=== PATIENT | female | born 1930 | race Caucasian/White ===

== ENCOUNTER 2017-07-09 12:29 | Inpatient (IN) | payer OTHER ==
--- NOTE | 2017-07-09 12:48 | CPEKG ---
Heart Rate: 72 RR Interval: 833 P-R Interval: 184 QRSD Interval: 100 QT Interval: 428 QTC Interval: 469 P [place]: 44 QRS [place]: 58 T Wave [place]: 52 EKG Severity - NORMAL ECG - EKG Impression: SINUS RHYTHM Electronically Signed By: Brian Meza 09-Jul-2017 14:50:17
--- NOTE | 2017-07-09 12:49 | EDPHY ---
HPI/HX/ROS/PE/MDM Narrative: CHIEF COMPLAINT: Chest pain HPI: The patient is an 87 y/o female arriving at the referral of her PCP for intermittent exertional chest pain over the last month. Her medical history including hypertension, hyperlipidemia, and remote history of polio. The patient describes an intermittent indigestion sensation for the past month. She was at her PCP's today for a routine visit. An EKG there showed T wave inversion and she was referred here for evaluation. Patient is a poor historian , limiting history. REVIEW OF SYSTEMS: Aside from elements discussed in the HPI, a comprehensive 10-point review of systems was reviewed and is negative. PMH: 1. Hyperlipidemia 2. Hypertension 3. Benign essential tremor 4. Albino's thyroiditis 5. Kidney mass 6. Post poliomyelitis syndrome 7. Pulmonary nodule followed to completion. 8. Abnormal gait from remote polio SOCIAL HISTORY: Lives alone. PCP: Dr. Saunders. Urologist: Dr. Serrato Prior medical records reviewed including PMH list from PCP visit today. PHYSICAL EXAM: General:Patient is alert, in no acute distress. ENT:Eyes are normal to inspection. ENT inspection normal. Neck: Normal inspection. Full range of motion. Respiratory:No respiratory distress. Breath sounds normal bilaterally. Cardiovascular: Regular rate and rhythm. Strong peripheral pulses. Normal cap refill. Abdomen:The abdomen is nontender to palpation. There are no peritoneal signs. Back: Normal to inspection. No tenderness to palpation. Skin: Normal color. No rash. Warm and dry. Extremities: Normal appearance. Full range of motion. Neuro: Oriented x3. Normal motor function. Normal sensory function. Resting tremor. ED Course: This is an 87 y/p female who presents with a 1-month history of intermittent chest pain that she describes as indigestion during exertion with EKG changes seen at her PCP's office today. She has a resting tremor, but otherwise unremarkable exam. Plan for cardiac work up including IV, labs, EKG, chest x-ray , and 324mg PO aspirin. The 12 lead EKG was interpreted by myself. Sinus mechanism. T wave inversion anterior leads new since EKG 2014. See hard copy and/or "tracemaster" electronic copy for interpretation. Chest x-ray: nothing acute. Labs including troponin are unremarkable. 1358: Reassessed patient and discussed work up thus far. She says she feels fine and says, "I'm ready to pull the things out and go home." I recommended admission for provocative cardiac testing due to exertional chest pain with EKG changes, which she agrees to. Spoke with hospitalist service. Dr. Gilbert accepts admission. - Data Points Imaging Results: Imaging Impressions Chest X-Ray 07/09/17 12:42 Impression: 1. No active cardiopulmonary disease seen. 2. Hyperexpanded lungs suggestive of underlying mild COPD. Imaging: I viewed and interpreted images myself Laboratory Results: Laboratory Results 07/09/17 12:47 07/09/17 12:47 07/09/17 07/09/17 07/09/17 12:47 12:47 12:47 WBC 9.50 10^3/uL 10^3/uL (3.80-9.50) RBC 5.23 10^6/uL 10^6/uL (4.18-5.33) Hgb 15.8 g/dL g/dL (12.6-16.3) Hct 45.0 % % (38.0-47.0) MCV 86.0 fL fL (81.5-99.8) MCH 30.2 pg pg (27.9-34.1) MCHC 35.1 g/dL g/dL (32.4-36.7) RDW 13.3 % % (11.5-15.2) Plt Count 272 10^3/uL 10^3/uL (150-400) MPV 9.2 fL fL (8.7-11.7) Neut % (Auto) 61.9 % % (39.3-74.2) Lymph % (Auto) 24.6 % % (15.0-45.0) [place] % (Auto) 9.6 % % (4.5-13.0) Eos % (Auto) 3.3 % % (0.6-7.6) Baso % (Auto) 0.3 % % (0.3-1.7) Nucleat RBC Rel Count 0.0 % % (0.0-0.2) Absolute Neuts (auto) 5.88 10^3/uL 10^3/uL (1.70-6.50) Absolute Lymphs (auto) 2.34 10^3/uL 10^3/uL (1.00-3.00) Absolute Monos (auto) 0.91 10^3/uL H 10^3/uL (0.30-0.80) Absolute Eos (auto) 0.31 10^3/uL 10^3/uL (0.03-0.40) Absolute Basos (auto) 0.03 10^3/uL 10^3/uL (0.02-0.10) Absolute Nucleated RBC 0.00 10^3/uL 10^3/uL (0-0.01) Immature Gran % 0.3 % % (0.0-1.1) Immature Gran # 0.03 10^3/uL 10^3/uL (0.00-0.10) PT 12.3 SEC SEC (12.0-15.0) INR 0.89 (0.83-1.16) APTT 28.5 SEC SEC (23.0-38.0) Sodium 141 mEq/L mEq/L (135-145) Potassium 4.7 mEq/L mEq/L (3.5-5.2) Chloride 107 mEq/L mEq/L (97-110) Carbon Dioxide 20 mEq/l L mEq/l (22-31) Anion Gap 14 mEq/L mEq/L (8-16) BUN 26 mg/dL H mg/dL (7-23) Creatinine 0.9 mg/dL mg/dL (0.6-1.0) Estimated GFR 59 Glucose 96 mg/dL mg/dL (70-100) Calcium 9.7 mg/dL mg/dL (8.5-10.4) Troponin I < 0.012 ng/mL ng/mL (0.000-0.034) Medications Given: Discontinued Medications Aspirin (Aspirin) 324 mg PO EDNOW ONE Stop: 07/09/17 12:53 Last Admin: 07/09/17 12:59 Dose: 324 mg General Time Seen by Provider: 07/09/17 12:39 Initial Vital Signs: Initial Vital Signs Temperature (C) 36.6 C 07/09/17 12:38 Heart Rate 76 07/09/17 12:38 Respiratory Rate 16 07/09/17 12:38 Blood Pressure 172/110 H 07/09/17 12:38 O2 Sat (%) 96 07/09/17 12:38 Allergies/Adverse Reactions: No Known Allergies Allergy (Verified 07/09/17 12:43) Home Medications: Medication Instructions Recorded Aspirin [Aspirin 81mg (*)] 81 mg PO Q2D@08/04/13 Lisinopril [Zestril 40 mg (*)] 40 mg PO DAILY@18 08/04/13 Cholecalciferol Vit D3 [Vitamin D3 50,000 unit PO TH@21 09/19/14 (*)] Metoprolol Succinate [Toprol Xl 200 mg PO DAILY 09/19/14 200 mg] NIFEdipine ER [Adalat CC 60 mg (*)] 60 mg PO DAILY 09/19/14 Acetaminophen [Tylenol 325mg (*)] 650 mg PO Q4 PRN #0 tab 09/20/14 Departure - Departure Disposition: [facility] Inpatient Acute Clinical Impression: T wave inversion in EKG Chest pain Qualifiers: Chest pain type: other chest pain Qualified Code(s): R07.89 - Other chest pain Condition: Fair Referrals: NONE *PRIMARY CARE P,. [Primary Care Provider] - As per Instructions Report Scribed for: Brian Meza Report Scribed by: Keri Wiggins Date of Report: 07/09/17 Time of Report: 12:49 Physician Review and Approval Statement: Portions of this note were transcribed by an ED scribe. I personally performed the history, physical exam, and medical decision making; and confirm the accuracy of the information in the transcribed note.
[2017-07-09] MEDS ORDERED: ASPIRIN 81 MG CHEWABLE TAB PO ONE (12:52)
[2017-07-09 12:56] LABS: PLATELET COUNT 272 10^3/uL (150-400)
[2017-07-09 13:06] LABS: INR 0.89 (0.83-1.16); PROTIME(PATIENT) 12.3 SEC (12.0-15.0)
[2017-07-09] MEDS ORDERED: ONDANSETRON 4 MG/2 ML VIAL IVP PRN (15:22)
[2017-07-09] MEDS ORDERED: ACETAMINOPHEN 325 MG TAB PO PRN (15:22)
[2017-07-09] MEDS ORDERED: ONDANSETRON DISINTEGRATING 4 MG TAB PO PRN (15:22)
--- NOTE | 2017-07-09 15:58 | GHP ---
[f rep st] HISTORY AND PHYSICAL DATE OF ADMISSION: 07/09/2017 HISTORY OF PRESENT ILLNESS: The patient is an 87-year-old female with essential tremor, hypertension , and hyperlipidemia presents with chest pain that is exertional in nature. It sounds like she gets it when she is walking quickly. She was able to shovel snow and perform water aerobics without any c hest pain. She does not have heart failure symptoms such as lower extremity edema, orthopnea. She a ttributes it to reflux and she had started taking red yeast rice, but it turns out this was in Octobe r and this chest pain has been recent. She is a bit of rambling historian. She is a little difficult to pin down exactly what happened, but it is clear that she has a pattern of exertional chest pain. REVIEW OF SYSTEMS: Complete 10-point review of systems conducted. Negative except as noted in the H PI. PAST MEDICAL HISTORY: 1. Essential tremor. 2. Hypertension. 3. Hyperlipidemia. Not on statin. ALLERGIES: Statins, for which she has myositis. HOME MEDICATIONS: Aspirin, vitamin D3, lisinopril, metoprolol, nifedipine, primidone. SOCIAL HISTORY: None. FAMILY HISTORY: Parents . SOCIAL HISTORY: Lives alone. No tobacco. No alcohol. PHYSICAL EXAMINATION: VITAL SIGNS: Temp 36.6, blood pressure 172/110, pulse 76, breathing 16 times a minute, 96% on room air. GENERAL: No acute distress. HEENT: Sclerae anicteric. Oropharynx clear. Mucous membranes are tere st. NECK: Supple. No lymphadenopathy or JVD. LUNGS: Clear to auscultation bilaterally. HEART: S1, S2. ABDOMEN: Soft, nontender, nondistended. EXTREMITIES: Lower extremities are without edema. Calves are nontender. SKIN: Without rash. NEUROLOGIC: Shows tremor. LABORATORY: Sodium 141, potassium 4.7, chloride 107, bicarb 20, BUN 26, creatinine 0.9, glucose 96. Troponin less than 0.012. Coags normal. CBC normal. Chest x-ray, interpreted by me, shows no acute cardiopulmonary disease. EKG interpreted by me, shows sinus at 72, with normal axis and intervals. There are diffusely flatte virgil T waves in a wavy baseline secondary tremor. When compared with prior, the T-wave inversion in t he precordium are now flat compared with upright. I discussed the case with Brian Meza. ASSESSMENT/PLAN: 87-year-old female with exertional chest pain. 1. Exertional chest pain. This is a bit of a difficult history, but it is concerning for possible e xertional angina. We will cycle troponins. She is already on an aspirin. We will not check a lipid panel. She does not tolerate statins. Will put her on exercise treadmill in the morning. I do not think this is consistent with pulmonary embolism. 2. Hypertension. Continue her medicines. 3. Social history: The patient lives alone. I am concerned that this represents a safe option for her. We will have Social Work see her. She has a daughter who lives locally that the patient shadi ny as not particularly involved in her care. DISPOSITION: Observation status. /[id number]/MODL
[2017-07-09] MEDS: CHOLECALCIFEROL VIT D3 1,000 UNITS TAB PO SCH (20:22)
[2017-07-09] MEDS: NIFEdipine ER 60 MG TAB PO SCH (20:23)
[2017-07-09] MEDS: METOPROLOL SUCCINATE XR 100 MG TAB PO SCH (20:23)
[2017-07-09] MEDS: ASPIRIN 81 MG CHEWABLE TAB PO SCH (20:24)
[2017-07-09] MEDS: LISINOPRIL 40 MG TAB PO SCH (20:24)
[2017-07-09] MEDS: PRIMIDONE 50 MG TAB PO SCH (20:24)
[2017-07-09] MEDS ORDERED: METOPROLOL SUCCINATE 200 MG PO SCH (21:00)
[2017-07-10] MEDS ORDERED: REGADENOSON 0.4 MG/5 ML SYR IVP ONE (11:38)
--- NOTE | 2017-07-10 11:53 | PDCARST ---
CAR Stress Test Results Type of Stress Test: Lexiscan stress test Indication: cp Description of Procedure: After informed consent was obtained, pt was established to ECG, blood pressure, HR and oximetry monitoring. STRESS EKG AND HEMODYNAMIC DATA. Resting heart rate: 90 BPM. Resting ECG: SR with Twi ant- sept leads. Resting blood pressure: 121/68 mmHg. O2 saturation at rest: 90%. Peak heart rate: 93 BPM. Peak blood pressure: 123/66 mmHg. Arrhythmias: none. Symptoms: The patient experienced no typical symptoms of angina during stress or recovery. Stress/Infusion ECG: No change in rhythm with no significant ST/T wave changes. Stress/infusion O2 saturation: 93% Impression: Uneventful Lexiscan infusion. Conclusion: Await nuclear images.
--- NOTE | 2017-07-10 12:46 | ASMTCASEMG ---
Living Arrangements What is your living Answers: Alone arrangement? Who do you live with? Type Of Residence What kind of residence do Answers: House you live in? Discharge Plan Comments Coordination Status Comments Notes: Pt is a 87 y/o female admitted for chest pain. PT was ordered this morning. Awaiting recommendations from PT. CM met w/ pt for dispo planning. Pt reports that she is looking into senior facilities and eventually selling her home. Pt reports having a supportive daughter and grand daughter nearby. Pt will also have a stress test today. CM completed [facility]KE[facility]. Needs are TBD at this time. CM available for d/c needs. Plan: TBD Date Signed: 07/10/2017 12:45 PM Electronically Signed By:MILO Squires
[2017-07-10] MEDS ORDERED: NITROGLYCERIN 0.4 MG BTL SL PRN (15:45)
[2017-07-10] MEDS ORDERED: TEMAZEPAM 15 MG CAP PO PRN (15:45)
--- NOTE | 2017-07-10 16:25 | ASMTCMCOM ---
CM Note CM Note Notes: PT is recommending home independent without any needs at this time. CM available for changes. Plan: Independent Date Signed: 07/10/2017 04:24 PM Electronically Signed By:MILO Squires
--- NOTE | 2017-07-10 16:42 | HOSPPROG ---
Hospitalist Progress Note Assessment/Plan: This 87-year-old female with history of essential tremor and hypertension who presented hospital with chest pain # positive stress test -cardiology has been consulted and plans for cardiac catheterization in the morning # hypertension (controlled) -continue medications Disposition: The patient will be admitted hospital under inpatient status given the positive stress test and need for further diagnostic workup Subjective: For decisional chest pain. Currently chest pain-free. She denies any fevers or chills. She denies any shortness of breath. Objective: Vital Signs Temp Pulse Resp BP Pulse Ox 36.6 C 71 18 134/82 H 93 07/10/17 16:00 07/10/17 16:00 07/10/17 16:00 07/10/17 16:00 07/10/17 16:00 07/09/17 07/10/17 07/11/17 05:59 05:59 05:59 Intake Total 540 Output Total 400 Balance 140 PT 12.3 SEC (12.0-15.0) 07/09/17 12:47 INR 0.89 (0.83-1.16) 07/09/17 12:47 Nuclear stress images were reviewed - Physical Exam Constitutional: no apparent distress, appears nourished, not in pain Ears, Nose, Mouth, Throat: moist mucous membranes, hearing normal, ears appear normal, no oral mucosal ulcers Cardiovascular: regular rate and rhythym, no murmur, rub, or gallop Respiratory: no respiratory distress, no rales or rhonchi, clear to auscultation Neurologic: AAOx3, sensation intact bilaterally ICD10 Worksheet Patient Problems: Problems Problem Status Onset Pyelonephritis Acute Chest pain Acute T wave inversion in EKG Acute
--- NOTE | 2017-07-10 17:10 | PDMN ---
Medical Necessity Medical necessity: C/M review: Patient meets INPT criteria under [facility] M-89 Chest pain: Acute chest pain, 07/10/2017 positive stress test requiring planned 07/11/2017 cardiac catheterization, ongoing cardiac monitoring, comorbid essential tremor, hypertension (controlled). MD anticipates > 2 MN LOS for ongoing med nec for eval and TX of above. Patient is Medicare Advantage which follows guidelines CMS puts forth.
--- NOTE | 2017-07-10 19:32 | GCON ---
[f rep st] CONSULTATION CARDIOLOGY CONSULT DATE OF CONSULTATION: 07/10/2017 PRIMARY CARE: Dr. Saunders and Dr. Misael Montgomery CHIEF COMPLAINT: Chest pain and abnormal myocardial perfusion study. HISTORY OF PRESENT ILLNESS: We were asked by to visit with this patient. The patient is an 87-year-old female with a history of hypertension and dyslipidemia, previously intolerant of statin therapy. Over the past few months, she has had chest pain with heavier exertion. For example, she states that she can do water aerobics without chest discomfort, but when she was rushing in the airport a couple of months ago, she had sharp epigastric chest discomfort. She describes this as epigastric and sharp. This was relieved with rest. She has never used sublingual nitroglycerin. A few days ago, however, she had the chest pain when simply walking to her car. It resolved after she got in her car and sat down. Initially, she thought this was related to reflux from red yeast rice, however, she stopped her red yeast rice in March and symptoms have persisted. Because of this, she presented to her primary care. She was reportedly hypoxic with exertion in the office and also had EKG changes showing anterolateral T- wave inversions. She was therefore admitted through the emergency department. Her blood pressure in the ER was 172/110. She currently has no chest pain. She reports that she is not significantly dyspneic. She does not endorse a history of palpitations, syncope, or lower extremity edema. ALLERGIES: No known drug allergies. PAST MEDICAL HISTORY: 1. Hypertension. 2. Dyslipidemia. 3. Essential tremor. 4. Post-polio syndrome. 5. Albino's thyroiditis. 6. Elevated PTH. 7. History of pulmonary nodule. 8. History of kidney mass. OUTPATIENT MEDICATIONS: Primidone, aspirin 81 mg daily, vitamin D3, lisinopril 40 mg daily, Toprol 10 mg daily, nifedipine 60 mg daily. SOCIAL HISTORY: The patient has an involved son who is at her bedside. She does not smoke cigarettes or drink alcohol. She lives alone. FAMILY HISTORY: Not applicable to the current case. PHYSICAL EXAM: VITAL SIGNS: Blood pressure is 122/64, heart rate 81, oxygen saturation is 92% on room air, and she is breathing 18 times per minute. She is afebrile. GENERAL: Well-appearing older female in no acute distress. She does have a tremor in both hands and head. HEENT: Normocephalic, atraumatic. Mucous membranes are moist. Sclerae are nonicteric. CARDIOVASCULAR: JVP is less than 10. Regular rate and rhythm without murmur, rub or gallop. LUNGS: Clear to auscultation bilaterally without wheeze, rhonchi, or rales. ABDOMEN: Soft and nontender without obvious bruits, masses or hepatosplenomegaly. EXTREMITIES: Warm and well perfused without cyanosis, clubbing, or edema. NEURO: Alert and oriented x3 without gross focal neurologic deficits. Appropriate mood and affect. LABS: CBC is normal. INR is normal. Troponin negative x3. Sodium 141, potassium 4.7, chloride 107, bicarb 20, BUN 26, creatinine 0.9. UA shows 2+ leukocyte esterase, 3-5 white cells, negative urine nitrite. Myocardial perfusion stress test shows a small territory of anterior septal infarct with juan-infarct ischemia. Ejection fraction is normal. EKG reviewed by me: From the ER shows sinus rhythm with anterior T-wave inversions. From Dr. Montgomery's office, showed T-wave inversions continuing into the lateral leads. T-wave inversions are new compared with 2015. Chest x-ray reviewed by me: Hyperexpansion. No acute cardiopulmonary process. ASSESSMENT/PLAN: An 87-year-old female with cardiac risk factors of untreated dyslipidemia, hypertension, age. She presents with symptoms concerning for progressive exertional angina. These symptoms are occurring despite the use of aspirin, maximum dose lisinopril, and 200 mg of metoprolol along with 60 mg of Adalat. Therefore, she is very well medically managed for angina. Her stress test today is mildly abnormal, suggestive of anterior infarct with juan-infarct ischemia. She did have a stress test in 2015 that was normal. 1. Chest pain: I have recommended coronary angiography for further evaluation and management. The risks, benefits and alternatives were discussed and the patient and her son and she is willing to proceed. Continue aspirin and blood pressure management. She has previously been intolerant of statins. 2. Hypertension: Currently, well controlled. She was hypertensive upon admission. Continue current blood pressure medications. 3. Dyslipidemia: Intolerant of statins. Most recent LDL was 169 in March. It sounds like she was also not tolerant of red yeast rice. We will initiate Zetia. Thank you for allowing us to participate in this patient's care. We will follow with you. /[id number]/MODL MTDD
[2017-07-10] MEDS: CHOLECALCIFEROL VIT D3 1,000 UNITS TAB PO SCH (20:58)
[2017-07-10] MEDS: PRIMIDONE 50 MG TAB PO SCH (20:58)
[2017-07-10] MEDS: ASPIRIN 81 MG CHEWABLE TAB PO SCH (20:59)
[2017-07-10] MEDS: NIFEdipine ER 60 MG TAB PO SCH (20:59)
[2017-07-10] MEDS: LISINOPRIL 40 MG TAB PO SCH (20:59)
[2017-07-10] MEDS: METOPROLOL SUCCINATE XR 100 MG TAB PO SCH (21:00)
[2017-07-11 04:43] LABS: PLATELET COUNT 239 10^3/uL (150-400)
[2017-07-11 05:45] LABS: INR 0.99 (0.83-1.16); PROTIME(PATIENT) 13.3 SEC (12.0-15.0)
[2017-07-11] MEDS ORDERED: diphenhydrAMINE 25 MG CAP PO ONE ×2 (06:00→08:45)
[2017-07-11] MEDS ORDERED: FAMOTIDINE 20 MG TAB PO ONE ×2 (06:00→08:45)
[2017-07-11] MEDS ORDERED: NS 1,000 ML IV ONE (06:00)
[2017-07-11] MEDS ORDERED: DIAZEPAM 5 MG TAB PO ONE ×2 (06:00→08:45)
[2017-07-11] MEDS ORDERED: ASPIRIN EC 325 MG TAB PO ONE ×2 (06:00→08:45)
--- NOTE | 2017-07-11 07:46 | PDHPUP ---
History & Physical Update H&P update statement: This history and physical update is based on an assessment of the patient which was completed after admission or registration (within 24 hours), but prior to the surgery/procedure. H&P update: H&P reviewed & patient examined, no change in patient's condition since H&P completed
--- NOTE | 2017-07-11 07:47 | PDPROPOC ---
Sedation Plan of Care Sedation Plan of Care: vital signs stable, mental status noted, patient educated of risks, benefits, alternatives, patient can tolerate sedation ASA Classification: ASA 2 Planned drugs: fentanyl, midazolam Mallampati Score: Class 2 Mallampati Reference Image: Patient passed 3-3-2 rule?: Yes
--- NOTE | 2017-07-11 08:41 | CPEKG ---
Heart Rate: 50 RR Interval: 1200 P-R Interval: 192 QRSD Interval: 100 QT Interval: 452 QTC Interval: 413 P [place]: 49 QRS [place]: 61 T Wave [place]: 84 EKG Severity - ABNORMAL ECG - EKG Impression: SINUS RHYTHM EKG Impression: ABNORMAL T, CONSIDER ISCHEMIA, ANT-LAT LEADS EKG Impression: COMPARED WITH 07/09/2017 AT 12:46 A.M., T-WAVE ABNORMALITIES MORE PRONOUNCED Electronically Signed By: Ely Mukherjee 11-Jul-2017 14:28:15
[2017-07-11] MEDS ORDERED: IOPAMIDOL (ISOVUE-370) 150 ML BTL IV ONE (09:26)
[2017-07-11] MEDS ORDERED: LIDOCAINE 1% 300 MG/30 ML SDV ONE (09:26)
[2017-07-11] MEDS ORDERED: fentaNYL 100 MCG/2 ML INJ ONE (09:26)
[2017-07-11] MEDS ORDERED: MIDAZOLAM 2 MG/2 ML VIAL ONE (09:26)
[2017-07-11] MEDS: EZETIMIBE 10 MG TAB PO SCH (09:34)
[2017-07-11] MEDS ORDERED: NITROGLYCERIN 0.4 MG BTL SL ONE (10:28)
[2017-07-11] MEDS ORDERED: NITROGLYCERIN/D5W 50 MG/250 ML BOTTLE IV ONE (10:29)
[2017-07-11] MEDS ORDERED: BIVALIRUDIN 250 MG/5 ML VIAL IV ONE (10:32)
--- NOTE | 2017-07-11 10:51 | PDDXCAT ---
Diagnostic Cath Note - . Date: 07/11/17 Burlap Roll Coverer: Lonny Indication: CCC Class III and IV angina on medical treatment - Procedure Access: right groin Procedure: left heart catheterization, coronary angiography - Materials Left Heart Cath size: 6F Left Heart Cath materials: JL4.0, JR4.0 - Findings-Left Heart Catheterization LM: Normal. Bifurcates into LAD and circumflex. LAD: Near complete occlusion in the proximal portion of the vessel.. There is a large septal manager intel. ST elevation with injection of the left coronary system. Patient also had chest pain and arm pain at this time. LCX: 20% proximal stenosis. 2 large OMs. RCA: 20% proximal to mid stenosis. Dominant. - Findings-Right Heart Catheterization AO: Complications: None Estimated blood loss: <50ml Closure method: manual pressure Assessment: Near complete occlusion of the proximal LAD with chest pain and ST elevation during injection. This resolved with sublingual nitroglycerin and nitroglycerin drip. Plan: Interventional consult with Dr. Jaime Mendez for PCI of the LAD. Results discussed with the patient's son. She is currently in stable condition. Patient Problems: Problems Problem Status Onset Pyelonephritis Acute Chest pain Acute T wave inversion in EKG Acute
[2017-07-11] MEDS ORDERED: CLOPIDOGREL BISULFATE 75 MG TAB ONE (11:10)
[2017-07-11] MEDS ORDERED: CLOPIDOGREL BISULFATE 75 MG TAB PO ONE (11:13)
[2017-07-11] MEDS ORDERED: ATROPINE SULFATE 1 MG/10 ML SYR IVP PRN (11:13)
--- NOTE | 2017-07-11 14:03 | CPEKG ---
Heart Rate: 45 RR Interval: 1333 QRSD Interval: 98 QT Interval: 476 QTC Interval: 412 QRS [place]: 96 T Wave [place]: 68 EKG Severity - ABNORMAL ECG - EKG Impression: SINUS BRADYCARDIA EKG Impression: RIGHT AXIS DEVIATION EKG Impression: BORDERLINE R WAVE PROGRESSION, ANTERIOR LEADS EKG Impression: NONSPECIFIC T ABNORMALITIES, ANT-LAT LEADS EKG Impression: COMPARED WITH 07/11/2017 8:40 A.M., OVERALL SIMILAR FINDINGS Electronically Signed By: Ely Mukherjee 11-Jul-2017 14:27:45
--- NOTE | 2017-07-11 15:40 | CPIP ---
[f rep st] INVASIVE CARDIAC PROCEDURE DATE OF PROCEDURE: 07/11/2017 PROCEDURE PERFORMED: 1. Coronary angiography. 2. Left ventriculography. 3. Stenting of left anterior descending coronary artery with Synergy drug-eluting stent. INDICATION: Acute coronary syndrome. ACCESS AND CORONARY ANGIOGRAPHY: Access and coronary angiography were performed by Dr. Ely Mukherjee. Coronary angiography was notable for single-vessel disease involving the proximal left anterior desce nding coronary artery. PERCUTANEOUS CORONARY INTERVENTION OF THE LEFT ANTERIOR DESCENDING CORONARY ARTERY: A 6-Fijian EBU 3 .0 catheter was advanced to the left main coronary artery and images obtained. The left main coronar y artery bifurcated into LAD and circumflex coronary arteries. In the proximal left anterior descend ing coronary artery, a single, discrete 99% stenosis could be seen. A Luge wire was placed in the di stal vessel and position verified by angiography. A 2.5 x 15 Emerge balloon was used to pre-dilate t he lesion. Followup angiography demonstrated significant residual stenosis with gnosticist of TJ- 3 flow. A 2.75 x 32 Synergy drug-eluting stent was then placed across the lesion and taken to 16 carlos ospheres. Followup angiography demonstrated TJ-3 flow. No residual stenosis. LEFT VENTRICULOGRAPHY: A 6-Fijian pigtail catheter was advanced into the left ventricle and images o btained. Left ventricle is normal in size and had normal systolic function. Estimated ejection frac tion was 65%. COMPLICATIONS: None. CONCLUSIONS: 1. Single-vessel coronary artery disease involving the left anterior descending coronary artery. 2. Normal left ventricular size and systolic function. 3. Status post successful percutaneous coronary intervention of the left anterior descending coronar y artery using a Synergy drug-eluting stent. /[id number]/MODL
--- NOTE | 2017-07-11 17:59 | HOSPPROG ---
Hospitalist Progress Note Assessment/Plan: 87-year-old female presenting with a positive stress test and normal troponins. Cardiac catheterization demonstrated a lesion in the LAD and today the patient underwent coronary ENG a plasty with a single Synergy drug eluting stent placed in the proximal LAD with resulting TJ flow 3. Patient has done well. Patient is new to me today. -coronary artery disease with a noted 80-90% lesion in the LAD, patient is status post a single Synergy drug-eluting stent to the LAD. LV EF was 60-65%. Patient currently doing well. -dyslipidemia with LDL greater than 100. Statin therapy will be initiated. Cath findings and angioplasty with stent discussed with patient and family. All questions answered. Picture of coronary arteries and explainantion of stent were given Time 40 minutes. Subjective: no complaints of chest pain, sob, cough. groin is nonternder, no swelling. Objective: Vital Signs Temp Pulse Resp BP Pulse Ox 37.1 C 43 L 14 117/52 L 95 07/11/17 08:51 07/11/17 15:00 07/11/17 15:00 07/11/17 15:00 07/11/17 15:00 Laboratory Results 07/11/17 03:07 07/11/17 03:07 07/10/17 07/11/17 07/12/17 05:59 05:59 05:59 Intake Total 300 525 Output Total 200 Balance 100 525 PT 13.3 SEC (12.0-15.0) 07/11/17 03:07 INR 0.99 (0.83-1.16) 07/11/17 03:07 - Time Spent With Patient Time Spent with Patient: greater than 35 minutes Time Spent with Patient: Greater than 35 minutes spent on this patients care, greater than 50% of time spent counseling, educating, and coordinating care regarding the above mentioned plan. - Pending Discharge Pending Discharge Within 24 Hours: Yes Pending Discharge Date: 07/12/17 Pending Discharge Time: 11:00 - Physical Exam Constitutional: no apparent distress Eyes: PERRL, anicteric sclera Ears, Nose, Mouth, Throat: moist mucous membranes, hearing normal Cardiovascular: regular rate and rhythym, no murmur, rub, or gallop Respiratory: no respiratory distress, no rales or rhonchi, clear to auscultation Gastrointestinal: normoactive bowel sounds, soft, non-tender abdomen, no palpable masses Genitourinary: no bladder fullness Skin: warm Musculoskeletal: full muscle strength Neurologic: AAOx3, CN II-XII Intact Psychiatric: interacting appropriately ICD10 Worksheet Patient Problems: Problems Problem Status Onset Chest pain Acute T wave inversion in EKG Acute Pyelonephritis Acute
[2017-07-11] MEDS: CHOLECALCIFEROL VIT D3 1,000 UNITS TAB PO SCH (20:48)
[2017-07-11] MEDS: PRIMIDONE 50 MG TAB PO SCH (20:49)
[2017-07-11] MEDS: LISINOPRIL 40 MG TAB PO SCH (20:49)
[2017-07-11] MEDS: NIFEdipine ER 60 MG TAB PO SCH (20:49)
[2017-07-11] MEDS ORDERED: METOPROLOL SUCCINATE XR 50 MG TAB PO SCH (21:00)
[2017-07-12 05:46] LABS: PLATELET COUNT 196 10^3/uL (150-400)
[2017-07-12 07:59] VITALS: BP 152/63; PULSE 59; RESP 23; TEMP 97.8; O2SAT 95
[2017-07-12] MEDS ORDERED: ASPIRIN EC 325 MG TAB PO SCH (09:00)
[2017-07-12] MEDS ORDERED: CLOPIDOGREL BISULFATE 75 MG TAB PO SCH (09:00)
--- NOTE | 2017-07-12 09:19 | CPEKG ---
Heart Rate: 59 RR Interval: 1017 QRSD Interval: 96 QT Interval: 428 QTC Interval: 424 QRS [place]: 76 T Wave [place]: 40 EKG Severity - ABNORMAL ECG - EKG Impression: SINUS RHYTHM EKG Impression: BORDERLINE R WAVE PROGRESSION, ANTERIOR LEADS EKG Impression: NONSPECIFIC T ABNORMALITIES, ANT-LAT LEADS EKG Impression: COMPARED WITH 07/11/2017 AT 2:02 P.M. NO SIGNIFICANT CHANGE Electronically Signed By: Ely Mukherjee 12-Jul-2017 13:21:34
[2017-07-12] MEDS: EZETIMIBE 10 MG TAB PO SCH (09:32)
[2017-07-12] MEDS ORDERED: POTASSIUM CL 20 MEQ/15 ML UDCUP PO ONE (10:03)
--- NOTE | 2017-07-12 10:22 | PDCARPN ---
Cardiology Progress Note Assessment/Plan: Assessment/plan: 87-year-old female with a history of hypertension and dyslipidemia previously intolerant of statins. She was admitted with unstable angina. Coronary angiography revealed proximally occluded LAD for which she underwent PCI with Dr. Jaime Mendez. She has done well with resolution of symptoms. 1. Coronary disease: As detailed above. She will require dual antiplatelet therapy for at least a year. The importance of uninterrupted therapy was reviewed. She has had profound muscle aches with previous statins, she will resume red yeast rice. Start Zetia. Blood pressure management. 2. Hypertension: Well controlled. I did decrease her Toprol while she was here due to significant bradycardia. 3. Dyslipidemia: LDL is quite elevated. Add Zetia. Resume red yeast rice. 4. Hypokalemia: Replete prior to discharge. She is stable for discharge. Follow-up in our office in 1 week. 07/12/17 10:25 Subjective: She feels well. No recurrent chest pain. No dyspnea. No significant groin pain. Reviewed/Discussed With: family, hospitalist (Dr. Parish) Objective: Vital Signs (8 Hrs) Temp Pulse Resp BP Pulse Ox 07/12/17 07:48 36.6 C 59 L 23 H 152/63 H 95 07/12/17 06:00 58 L 12 93 07/12/17 04:00 36.1 C 53 L 12 98/53 L 94 Intake/Output (24 Hrs) 07/11/17 07/12/17 07/13/17 05:59 05:59 05:59 Intake Total 300 1385 Output Total 200 Balance 100 1385 Intake: Oral (ml) 300 860 IV Intake (ml) 225 IV Infused (ml) 300 Ns 1,000 ml @ 100 mls/hr 300 IV ONCALL ONE Rx#: [id number] Output: Urine (ml) 200 Toilet 200 Other: Intake Quantity Yes Yes Sufficient Number of Voids Toilet 2 1 Number of Stools Toilet 1 No acute distress. JVP less than 10. Regular rate and rhythm without murmur or gallop Lungs clear bilaterally that was only rales No lower extremity edema. Right femoral arteriotomy site is clean dry and intact. No hematoma, ecchymosis , or bruit Result Diagrams: 07/12/17 05:35 07/12/17 05:35 Telemetry: Sinus rhythm and sinus bradycardia ICD10 Worksheet Patient Problems: Problems Problem Status Onset Pyelonephritis Acute Chest pain Acute T wave inversion in EKG Acute
--- NOTE | 2017-07-12 11:09 | GDS ---
[f rep st] DISCHARGE SUMMARY NEW AND ACUTE DIAGNOSES: On this admission: 1. Acute chest pain secondary to cardiac ischemia with a stent placed in the left anterior descending. 2. Hypertension. 3. Hyperlipidemia. 4. Essential tremor. CONSULTATION: Cardiology. PROCEDURE: 1. Left heart catheterization and noted a near total occlusion of the proximal portion of the LAD, with 20% proximal stenosis of the left circumflex and right coronary artery. A single Synergy drug-eluting stent was placed successfully. 2. Myocardial nuclear perfusion scan, showing normal left ventricular ejection fraction of 72% without wall motion abnormality. There was an area of decreased uptake of the anterior septal wall of the left ventricle. HOSPITAL COURSE: An 87-year-old female, presented for chest pain and was noted to have an abnormal myocardial perfusion scan, and on cardiac catheterization, noted to have nearly a complete occlusion of the LAD. A single Synergy drug- eluting stent was placed successfully without incidence. She tolerated the procedure well. Her blood pressure was adequately maintained. She was noted to have bradycardia postoperatively during monitoring in the ICU, and her metoprolol succinate 200 mg per day was changed to metoprolol succinate 50 mg a day due to bradycardia. In addition, she is intolerant of statins and Zetia has been prescribed for management of her elevated cholesterol and LDL. The LDL cholesterol was 188, with total cholesterol 257. She tolerated the procedure well. The right groin was healing well and nontender without hematoma at the time of discharge. DISCHARGE MEDICATIONS: New medications are Zetia 10 mg daily, Plavix 75 mg daily, aspirin 325 mg daily, metoprolol succinate XR 50 mg h.s. Continued medications are lisinopril 40 mg daily, nifedipine 60 mg h.s., vitamin D3 2- 3000 International Unit h.s., primidone 50 mg h.s. Stopped medications are aspirin 81 mg a day and metoprolol succinate 200 mg per day. PLAN: The patient will be following up with Dr. Ely Mukherjee or Cyrus Hayden in approximately 1-2 weeks. She will see her PCP, Lorena Saunders, as needed. Time: 40 minutes > 50% to school guidance counselor and coordinate care /[id number]/MODL MTDD
--- NOTE | 2017-07-12 15:55 | ASDISCHSUM ---
Discharge Information Plan Status:Home with No Needs Medically Cleared to Leave:07/11/2017 Discharge Date:07/12/2017 11:25 AM CM D/C Disposition:Home, Routine, Self-Care ADT D/C Disposition:Home, Routine, Self-Care Projected Discharge Date:07/12/2017 12:00 AM Transportation at D/C:Family Discharge Delay Reason: Follow-Up Date:07/12/2017 12:00 AM Discharge Slot: Final Diagnosis:CP, HTN, HLD, Essential tremor Placement Information Patient Contact Information Contact Name:HUMBERTO Relationship:Daughter Address: City:[place] Alternate Phone: State/Zip Code:[place] Email: Financial Information Financial Class:Medicare Advantage Plans Primary Plan Desc:[employer] MEDICARE Primary Plan Number:[id number] Secondary Plan Desc: Secondary Plan Number: Assessment Information [facility] Initial CM Assessment Living Arrangements What is your living Answers: Alone arrangement? Who do you live with? Type Of Residence What kind of residence do Answers: House you live in? Discharge Plan Comments Coordination Status Comments Notes: Pt is a 87 y/o female admitted for chest pain. PT was ordered this morning. Awaiting recommendations from PT. CM met w/ pt for dispo planning. Pt reports that she is looking into senior facilities and eventually selling her home. Pt reports having a supportive daughter and grand daughter nearby. Pt will also have a stress test today. CM completed [facility]. Needs are TBD at this time. CM available for d/c needs. Plan: TBD Date Signed: 07/10/2017 12:45 PM Electronically Signed By:MILO Squires [facility] CM Progress Note CM Note CM Note Notes: PT is recommending home independent without any needs at this time. CM available for changes. Plan: Independent Date Signed: 07/10/2017 04:24 PM Electronically Signed By:MILO Squires Case Management Discharge Plan Note Case Management Discharge Discharge Order Complete? Answers: Yes Patient to Obtain Answers: via Family Medications Transportation Arranged Answers: Family/Friends Transport will Pick (Date 07/12/2017 12:00 AM & Time) Family Notified Answers: Yes Notes: Family to transport Discharge Comments Notes: Patient has been discharged. No discharge needs. Date Signed: 07/12/2017 03:14 PM Electronically Signed By:Nancie Luis LCSW Intervention Information Intervention Type:*LINDA-Signed Date of Service:07/10/2017 10:55 AM Patient Type:Observation Staff Member:MILO Bowden Michelle Hours: Discipline: Severity: Comment:
== END 2017-07-12 11:25 | disposition home or self-care (01) | DRG 247 ==
LOC: F2W 16:15 → OBSVTOIN 07-10 16:58 → F2N 07-11 11:05
PROVIDERS: ADMIT Internal Medicine; ATTEND Internal Medicine
PROC: B2151ZZ Fluoroscopy of Left Heart using Low Osmolar Contrast (ICD-10-PCS; principal; 2017-07-11)
PROC: 027034Z Dilation of Coronary Artery, One Artery with Drug-eluting Intraluminal Device, Percutaneous Approach (ICD-10-PCS; principal; 2017-07-11)
PROC: 4A023N7 Measurement of Cardiac Sampling and Pressure, Left Heart, Percutaneous Approach (ICD-10-PCS; principal; 2017-07-11)
PROC: B2111ZZ Fluoroscopy of Multiple Coronary Arteries using Low Osmolar Contrast (ICD-10-PCS; principal; 2017-07-11)
DX: I25.119 Atherosclerotic heart disease of native coronary artery with unspecified angina pectoris (principal); I24.9 Acute ischemic heart disease, unspecified; E87.6 Hypokalemia; I10 Essential (primary) hypertension; E78.5 Hyperlipidemia, unspecified; G25.0 Essential tremor; G14 Postpolio syndrome
CPT/HCPCS: 97161-GP; A9500; C1725; C1769; C1874; C1887; C9600; G0378; J0583; J1644; J2250; J2785; J3010; Q9967

== ENCOUNTER 2017-07-23 15:12 | Inpatient (IN) | payer OTHER ==
[2017-07-23] MEDS ORDERED: NS 1,000 ML IV ONE (15:31)
[2017-07-23] MEDS ORDERED: PANTOPRAZOLE SODIUM 40 MG VIAL IVP ONE ×2 (15:48→16:30)
--- NOTE | 2017-07-23 15:48 | EDPHY ---
H & P Stated Complaint: sent by Dr Saunders, concerns for a GI bleed. HPI/ROS: HPI CHIEF COMPLAINT: Black tarry stool HISTORY OF PRESENT ILLNESS: Patient very pleasant 87-year-old female she has a history of hypertension hyperlipidemia recent hospitalization with coronary artery stent placed, she is on aspirin and Plavix. She presents emergency room with black tarry stool for the past week to 2 weeks she has noticed intermittently. Denies any chest pain or shortness of breath. She states her stool has been dark in color since discharge. She did go to her primary care doctor's office today and had blood work and noted that her H&H were lower. She was sent here to the emergency room for further evaluation. She denies fatigue or generalized weakness, denies chest pain or shortness of breath. Past Medical History: Hypertension, hyperlipidemia coronary artery disease with stent Past Surgical History: Cardiac stent placed Social History: Denies daily use drugs alcohol tobacco Family History: Noncontributory PCP is Dr. Saunders. Industrial Furnace Fabricator is Dr. Mukherjee. ROS REVIEW OF SYSTEMS: A comprehensive 10 point review of systems is otherwise negative aside from elements mentioned in the history of present illness. Exam Constitutional triage nursing summary reviewed, vital signs reviewed, awake/ alert. Eyes normal conjunctivae and sclera, EOMI, PERRLA. HENT normal inspection, atraumatic, dry mucus membranes, no epistaxis, neck supple/ no meningismus, no raccoon eyes. Respiratory clear to auscultation bilaterally, normal breath sounds, no respiratory distress, no wheezing. Cardiovascular rate normal, regular rhythm, no murmur, no edema, distal pulses normal. Gastrointestinal rectal exam shows black tarry stool on exam. Deana GUTIERREZ at bedside for exam. soft, non-tender, no rebound, no guarding, normal bowel sounds, no distension, no pulsatile mass. Genitourinary no CVA tenderness. Musculoskeletal no midline vertebral tenderness, full range of motion, no calf swelling, no tenderness of extremities, no meningismus, good pulses, neurovascularly intact. Skin pink, warm, & dry, no rash, skin atraumatic. Neurologic awake, alert and oriented x 3, AAOx3, moves all 4 extremities equally, motor intact, sensory intact, CN II-XII intact, normal cerebellar, normal vision, normal speech. Psychiatric normal mood/affect. Heme/Lymph/Immune no lymphadenopathy. Differential Diagnosis: Includes but is not limited to in a particular order acute GI bleed, upper GI bleed, anemia from blood loss, GI bleed from aspirin and Plavix recent cardiac stents Medical Decision Making: This patient IV establishment type and screen, check CBC, check coags, rectal exam, occult blood loss stool, IV fluids 1 L normal saline, most likely admit for GI bleed. Re-evaluation: 161: Patient here with GIB. Black tarry stool. Patient's Hemoccult- positive. H&H reviewed. Vital signs are stable. Blood pressure stable. Patient will be receiving fluid bolus 1 L normal saline for dehydration, additionally Protonix bolus and Protonix drip. I have asked the hospitalist service to admit her Dr. Gilbert. Additionally I will consult her compressor assembler and additionally GI. 162: Spoke with Dr. Camarillo, and Dr. Mariela Carrillo and GI. Would like Plavix to continue, okay with plan at this time. Source: Patient, Family - Personal History Current Tetanus Diphtheria and Acellular Pertussis (TDAP): Yes Tetanus Vaccine Date: 2011 - Medical/Surgical History Hx Asthma: No Hx Chronic Respiratory Disease: No Hx Diabetes: No Hx Cardiac Disease: Yes Hx Renal Disease: No Hx Cirrhosis: No Hx Alcoholism: No Hx HIV/AIDS: No Hx Splenectomy or Spleen Trauma: No Other PMH: Hyperlipidemia, HTN, tremor, thyroiditis, polio, pulmonary nodule. Heart stent Jun 2017. - Social History Smoking Status: Never smoked Constitutional: Initial Vital Signs Temperature (C) 36.4 C 07/23/17 15:18 Heart Rate 81 07/23/17 15:18 Respiratory Rate 18 07/23/17 15:18 Blood Pressure 134/64 H 07/23/17 15:18 O2 Sat (%) 97 07/23/17 15:18 O2 Delivery Mode Room Air Allergies/Adverse Reactions: No Known Allergies Allergy (Verified 07/09/17 12:43) Home Medications: Medication Instructions Recorded Cholecalciferol Vit D3 [Vitamin D3 2,000 - 3,000 units PO HS 07/09/17 (*)] Primidone [Mysoline] 50 mg PO HS 07/09/17 Clopidogrel Bisulfate [Plavix (*)] 75 mg PO DAILY #30 tab 07/12/17 Ezetimibe [Zetia 10 MG (*)] 10 mg PO DAILY #30 tab 07/12/17 Metoprolol Succinate Xr [Toprol Xl 50 mg PO HS #30 tab 07/12/17 50 mg (*)] Nitroglycerin [Nitrostat 0.4 mg 0.4 mg SL Q5M PRN 07/23/17 (*)] Aspirin [Aspirin 81mg (*)] 81 mg PO DAILY tab.chew 07/25/17 Lisinopril [Prinivil] 5 mg PO DAILY #30 tablet 07/25/17 Pantoprazole Sodium [Protonix 40mg 40 mg PO BID #60 tab 07/25/17 (*)] Medical Decision Making - Data Points Laboratory Results: Laboratory Results 07/23/17 15:41 07/23/17 15:41 Microbiology Results: MICROBIOLOGY 07/23/17 06:48 Urine,Clean Catch Urine Culture - Preliminary Two [place] Types Medications Given: Discontinued Medications Acetaminophen (Tylenol) 650 mg PO Q4HRS PRN PRN Reason: Pain, Mild/Fever, Can Take PO Stop: 01/19/18 17:42 Last Admin: 07/24/17 01:50 Dose: 650 mg Aspirin (Aspirin) 81 mg PO DAILY WENDY Stop: 01/20/18 08:59 Last Admin: 07/25/17 08:23 Dose: 81 mg Clopidogrel Bisulfate (Plavix) 75 mg PO DAILY WENDY Stop: 01/20/18 08:59 Last Admin: 07/25/17 08:23 Dose: 75 mg Ezetimibe (Zetia) 10 mg PO DAILY WENDY Stop: 01/20/18 08:59 Last Admin: 07/25/17 08:23 Dose: 10 mg Sodium Chloride (Ns) 1,000 mls @ 0 mls/hr IV EDNOW ONE; Wide Open PRN Reason: Protocol Stop: 07/23/17 15:32 Last Admin: 07/23/17 15:50 Dose: 1,000 mls Sodium Chloride (Ns) 1,000 mls @ 125 mls/hr IV CONT [facility] Stop: 07/24/17 01:44 Last Admin: 07/23/17 22:51 Dose: 1,000 mls Sodium Chloride (Ns) 1,000 mls @ 50 mls/hr IV CONT [facility] Stop: 01/20/18 12:44 Last Admin: 07/24/17 22:42 Dose: 1,000 mls Lisinopril (Zestril) 40 mg PO [facility] Stop: 01/19/18 20:59 Last Admin: 07/23/17 22:11 Dose: Not Given Metoprolol Succinate (Toprol Xl) 50 mg PO [facility] Stop: 01/19/18 20:59 Last Admin: 07/24/17 20:01 Dose: 50 mg Pantoprazole Sodium (Protonix) 40 mg IVP EDNOW ONE Stop: 07/23/17 15:49 Last Admin: 07/23/17 15:53 Dose: 40 mg Pantoprazole Sodium (Protonix) 40 mg IVP EDNOW ONE Stop: 07/23/17 16:31 Last Admin: 07/23/17 16:33 Dose: 40 mg Pantoprazole Sodium (Protonix) 40 mg IVP BID [facility] Stop: 01/19/18 20:59 Last Admin: 07/25/17 08:21 Dose: 40 mg Primidone (Mysoline) 50 mg PO [facility] Stop: 01/19/18 20:59 Last Admin: 07/24/17 20:01 Dose: 50 mg Departure - Departure Disposition: [facility] Acute Clinical Impression: GIB (gastrointestinal bleeding) Qualifiers: GI bleed type/associated pathology: melena Qualified Code(s): K92.1 - Melena Condition: Fair
[2017-07-23 15:51] LABS: PLATELET COUNT 322 10^3/uL (150-400)
[2017-07-23 15:59] LABS: INR 0.98 (0.83-1.16); PROTIME(PATIENT) 13.2 SEC (12.0-15.0)
[2017-07-23] MEDS ORDERED: PANTOPRAZOLE SODIUM 80 MG in NS 100 ML IV SCH (16:00)
--- NOTE | 2017-07-23 17:25 | PDCARPN ---
Cardiology Progress Note Chief Complaint: Dark tarry stools. Assessment/Plan: Assessment: Anna is a 87 y/o F with a history of HLP, HTN, and CAD with stenting to the proximal LAD with a 2.75x 32mm Synergy LARRY on 07/11. Since her stent was placed she has noticed dark tarry stools. Her H/H has dropped the day after her stent and then slowly progressed. She is also complaining of symptoms consistent with a UTI. Plan: 1. CAD s/p proximal LAD stent on 07/11. Now with GI bleed. Unfortunately, her stent is high risk for thrombosis given that it was placed less then 2 weeks ago. She will need to remain on aspirin 81mg and Plavix. Monitor h/h closely and transfuse as needed. She is currently stable. PT discussed with Dr. Mukherjee. 2. GI bleed- GI consult pending. 3. ARF secondary to UTI and hypovolemia. Lisinopril can be held 4. HLP with statin intolerance. Continue Red Yeast Rice and Zetia. 5. HTN- well controlled 07/23/17 17:25 Subjective: Pt denies any CP or SOB. She denies any dizziness, lightheadedness, or syncope. Objective: Vital Signs (8 Hrs) Temp Pulse Resp BP Pulse Ox 07/23/17 16:26 36.7 C 87 16 123/74 H 95 Result Diagrams: 07/23/17 15:41 07/23/17 15:41 - Physical Exam Constitutional: healthy appearing Cardiovascular: regular rate and rhythm, no murmurs, no rubs, no gallops Peripheral Pulses: 2+: dorsalis-pedis (R), dorsalis-pedis (L) Respiratory: clear to auscultate bilat, no crackles, no wheezes Skin: no edema Neurologic: AAOx3 ICD10 Worksheet Patient Problems: Problems Problem Status Onset GIB (gastrointestinal bleeding) Acute Chest pain Acute Pyelonephritis Acute T wave inversion in EKG Acute
[2017-07-23] MEDS ORDERED: ONDANSETRON DISINTEGRATING 4 MG TAB PO PRN (17:43)
[2017-07-23] MEDS ORDERED: ACETAMINOPHEN 325 MG TAB PO PRN (17:43)
[2017-07-23] MEDS ORDERED: ONDANSETRON 4 MG/2 ML VIAL IVP PRN (17:43)
[2017-07-23] MEDS ORDERED: NS 1,000 ML IV SCH (17:45)
--- NOTE | 2017-07-23 18:23 | GHP ---
[f rep st] HISTORY AND PHYSICAL DATE OF ADMISSION: 07/23/2017 HISTORY OF PRESENT ILLNESS: The patient is an 87-year-old female with history of coronary artery dis ease, had a drug-eluting stent placed to the proximal LAD about a week ago, or 10 days ago, presents with black stools, as well as urinary frequency. She has not had chest pain or shortness of breath a t presenting time. Symptom with her LAD was just exertional chest pain. She has had intermittent black stool. She has not had vomiting. She has not had hematemesis. She h as not had coffee-ground emesis. She saw her primary care physician where she was found have a sligh tly low hemoglobin and hematocrit, was referred to the emergency department for further evaluation. REVIEW OF SYSTEMS: A complete 10-point review of systems conducted and negative, except as noted in the HPI, as well as patient is concerned she has a UTI secondary to urinary frequency. PAST MEDICAL HISTORY: 1. Hypertension. 2. Hyperlipidemia. 3. Coronary artery disease. 4. Essential tremor. ALLERGIES: Statins, for which she gets myositis. HOME MEDICATIONS: Aspirin, Plavix, nifedipine, metoprolol vitamin D3, Zetia, lisinopril, and primido ne. SOCIAL HISTORY: She lives locally. Minimal alcohol. No tobacco. FAMILY HISTORY: Parents . PHYSICAL EXAMINATION: VITAL SIGNS: Temp 36.4, blood pressure 134/64, pulse 81, breathing at 18 time s a minute, 97% on room air. GENERAL: No acute distress. HEENT: Sclerae anicteric. Oropharynx cl ear. Mucous membranes are moist. NECK: Supple. No lymphadenopathy or JVD. LUNGS: Clear to auscu ltation bilaterally. HEART: S1, S2. ABDOMEN: Soft, nontender, nondistended. LOWER EXTREMITIES: Without edema. Calves nontender. SKIN: Without rash. NEUROLOGIC: Nonfocal. LABORATORY DATA: White count 12.3. Hematocrit is 28.8, was 40 on the 27th. Her platelet count is 3 22,000. INR is 0.98. Sodium 128, potassium 5.1, chloride 99, bicarb 18, BUN 41, creatinine 1.3. Gl ucose is 104. UA is pending. She is guaiac positive. I have discussed the case Dr. William Hester. ASSESSMENT/PLAN: This is an 87-year-old female, with melena following a drug-eluting stent. 1. Melena. This is concerning for an upper gastrointestinal bleed. I started her on b.i.d. Protoni x. She is not actively bleeding as best we can tell. She has no coagulopathy to correct. She is he modynamically stable. 2. I will start her on b.i.d. Protonix. Gastroenterology is consulted and will see her. She needs to continue her aspirin and Plavix as this is a high risk stent, and that is a drug-eluting stent to the proximal left anterior descending. 3. Urinary frequency. Urinalysis pending. 4. Blood loss anemia. This is acute blood loss anemia. We will repeat it now. 5. Hyponatremia. I suspect this is due to poor p.o. intake. She is clinically dry. She needs volu me resuscitation. We will follow. 6. Acute kidney injury. The patient has mild hypovolemia. I will give her some normal saline and f ollow. 7. Prophylaxis. Pharmacologic prophylaxis indicated, but contraindicated secondary to her acute ble ed. We will follow. Place sequential compression devices. CODE: Full. DISPOSITION: Inpatient. /[id number]/MODL
--- NOTE | 2017-07-23 18:28 | CPEKG ---
Heart Rate: 74 RR Interval: 811 P-R Interval: 200 QRSD Interval: 96 QT Interval: 396 QTC Interval: 440 P [place]: 80 QRS [place]: 81 T Wave [place]: 45 EKG Severity - OTHERWISE NORMAL ECG - EKG Impression: SINUS RHYTHM EKG Impression: BORDERLINE RIGHT AXIS DEVIATION Electronically Signed By: William Hester 23-Jul-2017 20:06:33
--- NOTE | 2017-07-23 20:03 | SOAPPROG ---
[facility]IC[facility] Progress Note Assessment/Plan: Assessment:Plan: see full dictated consult 87 y/o with UGI bleed, melena, increased BUN/cr ratio with recent stent on aspirin and Plavix urgent EGD tonight evaluate and treat any UGI bleeding source and to stratify bleeding risk over next few days please do not stop her Plavix discussed with Dr Gilbert 07/23/17 19:59 Objective: Vital Signs Temp Pulse Resp BP Pulse Ox 36.8 C 79 16 134/52 H 95 07/23/17 18:47 07/23/17 18:47 07/23/17 18:47 07/23/17 18:47 07/23/17 18:47 07/22/17 07/23/17 07/24/17 05:59 05:59 05:59 Intake Total 1000 Balance 1000 PT 13.2 SEC (12.0-15.0) 07/23/17 15:41 INR 0.98 (0.83-1.16) 07/23/17 15:41 ICD10 Worksheet Patient Problems: Problems Problem Status Onset GIB (gastrointestinal bleeding) Acute Chest pain Acute Pyelonephritis Acute T wave inversion in EKG Acute
[2017-07-23] MEDS ORDERED: LIDOCAINE 2% 100 MG/5 ML SYR ONE (20:54)
[2017-07-23] MEDS ORDERED: PROPOFOL 200 MG/20 ML VIAL ONE (20:54)
--- NOTE | 2017-07-23 20:57 | PDHPUP ---
History & Physical Update H&P update statement: This history and physical update is based on an assessment of the patient which was completed after admission or registration (within 24 hours), but prior to the surgery/procedure.
[2017-07-23] MEDS ORDERED: LISINOPRIL 40 MG TAB PO SCH (21:00)
--- NOTE | 2017-07-23 21:03 | PDANEPAE ---
ANE History of Present Illness pt on dual anti-platelet therapy for recent (Jun) LAD stent ANE Past Medical History - Cardiovascular History Hx Hypertension: Yes Hx Chest Pain: Yes Hx Coronary Artery / Peripheral Vascular Disease: Yes - Pulmonary History Hx Oxygen in Use at Home: No Hx Sleep Apnea: No - Endocrine History Hx Diabetes: No - Renal History Hx Renal Disorders: Yes Renal History Comment: YADIRA secondar to bleed/lisinoril/UTI/etc - Chronic Pain History Chronic Pain: No ANE Review of Systems Review of Systems: - Exercise capacity Exercise capacity: unable to assess ANE Patient History - Allergies Allergies/Adverse Reactions: No Known Allergies Allergy (Verified 07/09/17 12:43) - Home Medications Home medications: home medication list seen and reviewed Home Medications: Lisinopril [Zestril 40 mg (*)] 40 mg PO HS 08/04/13 [Last Taken 07/22/17] NIFEdipine ER [Adalat CC 60 mg (*)] 60 mg PO HS 09/19/14 [Last Taken 07/22/17] Cholecalciferol Vit D3 [Vitamin D3 (*)] 2,000 - 3,000 units PO HS 07/09/17 [ Last Taken 07/08/17] Primidone [Mysoline] 50 mg PO HS 07/09/17 [Last Taken 07/22/17] Nitroglycerin [Nitrostat 0.4 mg (*)] 0.4 mg SL Q5M PRN 07/23/17 [Last Taken Unknown] - Anes Hx Anes Hx: slow to awaken from anesthesia - Smoking Hx Smoking Status: Never smoked ANE Labs/Vital Signs - Labs Result Diagrams: 07/23/17 20:00 07/23/17 20:00 - Vital Signs Blood Pressure: 134/52 Heart Rate: 79 Respiratory Rate: 16 O2 Sat (%): 95 Height: 154.94 cm Weight: 53.524 kg ANE Physical Exam - Airway Neck exam: decreased ROM Mallampati Score: Class 3 Mouth exam: normal dental/mouth exam - Pulmonary Pulmonary: no respiratory distress - Cardiovascular Cardiovascular: regular rate and rhythym - ASA Status ASA Status: III ANE Anesthesia Plan Anesthesia Plan: GA with mask (Propofol)
--- NOTE | 2017-07-23 21:13 | POSTOPPROG ---
Post Op Note Date of Operation: 07/23/17 Surgeon: Arcadio Camarillo Anesthesiologist: Dr Paulino Anesthesia: Other (Specify) (IV general) Pre-op Diagnosis: melena Post-op Diagnosis: erosive gastritis Indication: melena, anemia Procedure: egd and bx Findings: nml esoph, erosive gsatritis, mild duodentitis Inf/Abcess present in the surg proc area at time of surgery?: No EBL: Minimal (few ml from cold bx) Total fluids administered: 400 ml LR Complications: none immediate
--- NOTE | 2017-07-23 21:26 | GIREPORT ---
[facility] - Endoscopy Department Patient Name: Anna Ramires Procedure Date: 07/23/2017 8:37 PM Patient Type: Inpatient Attending MD/ ER Physician: Matt Paul Procedure: Upper GI endoscopy Indications: Acute post hemorrhagic anemia, Melena Providers: Arcadio Camarillo MD Referring MD: Lorena Saunders MD Medicines: Total IV Anesthesia (TIVA) = IV general Complications: No immediate complications. Estimated blood loss: Minimal. Description of Procedure: After obtaining informed consent, the endoscope was passed under direct vision. Throughout the procedure, the patient's blood pressure, pulse, and oxygen saturations were monitored continuously.The upper GI endoscopy w as accomplished without difficulty. The patient tolerated the procedure we ll. The Endoscope was introduced through the mouth, and advanced to the thi rd part of duodenum. Findings: The examined esophagus was normal. A few, small non-bleeding erosions were found in the gastric antrum. Th ere were no stigmata of recent bleeding. Scattered inflammation characterized by erosions, erythema, friability and granularity was found in the gastric antrum. Biopsies were taken with a cold forceps for histology. Estimated blood loss was minimal. Localized mild inflammation characterized by erythema and friability wa s found in the duodenal bulb. The exam was otherwise without abnormality. Estimated Blood Loss: Estimated blood loss was minimal. Post Op Diagnosis: - Normal esophagus. - Non-bleeding erosive gastropathy. - Gastritis. Biopsied. - Duodenitis. - The examination was otherwise normal. Recommendation: - Await pathology results. - My office will call with the pathology result with 5-7 days. If you h ave not heard from my office by 12-14, do not assume the pathology is blue l, please call [phone] to get the pathology results. - Use Protonix (pantoprazole) 40 mg PO daily for 8 weeks. She will need some type of fpc GI prophylaxis for her dual platelet therapy which includes aspirin. PCP and Cardiology can decide if H2RA or PPI. If H2RA is chosen and she has recurrent UGI bleed, then PPI fpc. - Resume regular diet. - Return patient to [facility] for [facility] care. - Thank you for allowing me to help in your patient's care. Do not hesi dodson to call with any questions. Attending Participation: I personally performed the entire procedure. Marquise Pelaez M.D Benigno Camarillo MD 07/23/2017 9:25:36 PM This report has been signed electronicallyMathew MD Marquise Number of Addenda: 0 Note Initiated On: 07/23/2017 8:37 PM [email or web address]
--- NOTE | 2017-07-23 21:28 | POSTANESTH ---
Post Anesthetic Evaluation Cardiovascular Status: Normal, Stable Respiratory Status: Normal, Stable Level of Consciousness/Mental Status: Can Participate in Eval Pain Control: Adequate, Prn Tx Ordered Nausea/Vomiting Control: Adequate, Prn Tx Ordered Complications Possibly Related to Anesthesia: None Noted
[2017-07-23] MEDS: METOPROLOL SUCCINATE XR 50 MG TAB PO SCH (22:11)
[2017-07-23] MEDS: PRIMIDONE 50 MG TAB PO SCH (22:51)
[2017-07-23] MEDS: PANTOPRAZOLE SODIUM 40 MG VIAL IVP SCH ×2 (22:51→23:06)
--- NOTE | 2017-07-24 01:19 | GCON ---
[f rep st] CONSULTATION REQUESTING PHYSICIANS: MD Gustavo Viramontes MD INDICATION FOR CONSULTATION: Melena and posthemorrhagic anemia. HPI: Patient is a very pleasant 87-year-old female with past medical history significant for hypertension, hyperlipidemia, recent coronary artery disease status post drug-eluting stent placed in her proximal LAD on July 11. She was discharged on aspirin and Plavix. She has been having melena for a number of days. She is not a great historian. She cannot tell me exactly, it is at least a couple days and maybe up to a week. She can go anywhere from 1 to a few times a day and it is black and sticky. She denies any upper symptoms. Denying nausea, vomiting, dysphagia, odynophagia, or early satiety. She says her appetite is good. She has not had any coffee-ground emesis. She did see her primary care physician, found to have a slightly low hemoglobin and sent to the emergency room for further evaluation. I am now called to help evaluate a possible upper GI bleed in an 87-year-old female who just had a drug-eluting stent placed in her LAD on July 11, who is on aspirin and Plavix. PAST MEDICAL HISTORY: Hypertension, hyperlipidemia, coronary artery disease as noted above, essential tremor. PAST SURGICAL HISTORY: Tonsillectomy MEDICATIONS: At home include aspirin 81 mg, Plavix, nifedipine, metoprolol, Zetia, lisinopril, primidone, vitamin D3, she also takes multivitamins. ALLERGIES: She says statins give her myositis. SOCIAL HISTORY: She lives here in [place]. Her daughter is in the room with her. She drinks alcohol very infrequently. She has never been a smoker. FAMILY HISTORY: She says there are no colon cancer or colon polyps to her knowledge. REVIEW OF SYSTEMS: A complete Review of Systems was performed and is negative other than noted in the HPI. She does have some urinary frequency for which she did receive some Bactrim, however, UA today did not reveal any obvious infection. PHYSICAL EXAMINATION: GENERAL: Well-developed, well-nourished elderly female, sitting in her bed, in no acute distress. Her daughter is in the room. VITAL SIGNS: Blood pressure is 90/61, pulse 72, respirations are 14. She is 95% on 2 L nasal cannula. EYES: Anicteric. KATY, EOMI. Mouth: No lesions. Moist mucous membranes. NECK: Supple. Full range of motion. No JVD. BACK: No spine tenderness. No CVA tenderness. LUNGS: Clear to auscultation. CARDIAC: S1, S2. Regular rate and rhythm. I do not appreciate any murmurs, rubs or gallops. ABDOMEN: Bowel sounds are normal in pitch and frequency. Abdomen is soft and nontender. No hepatosplenomegaly. EXTREMITIES: No cyanosis, clubbing , or edema. NEUROLOGIC: Cranial nerves intact, nonfocal. SKIN: No stigmata of advanced liver disease or rashes. RECTAL: Melena on exam by report in the ER. LABORATORY DATA: From today: WBC 12.29, hemoglobin 9.9, hematocrit 28.8, platelet count 322. From July 12, hemoglobin was 11.3, hematocrit 33.6. From July 11, hemoglobin 11.3, hematocrit 40.7. From July 09, hemoglobin 15.8, hematocrit 45. From today: Sodium 134, potassium 4.6, chloride 107, bicarb 17, BUN 37, creatinine 1.2, glucose 102, calcium 8.8. On July 11, a BUN creatinine ratio was 23 and 0.9. On the , it was 24 and 0.7. Earlier today. it was BUN 44, creatinine 1.5. Earlier today her AST was 20, ALT 19, alk phos 50, bilirubin 0.4, total protein 6.2, albumin 3.5. Her UA today showed 1+ blood, trace leukocyte esterase, 1-3 RBCs, 1-3 WBCs, trace bacteria. She did have trace bacteria. Rectal exam was melena, occult blood positive. Coagulation performed today: Pro time 13.2, INR 0.98, PTT 27.0. Interventional cardiac procedure from July 11, 2017: Single-vessel coronary artery disease involving the left anterior descending coronary artery. Normal left ventricular size and systolic function. Status post successful percutaneous coronary intervention of the left anterior descending coronary artery using a Synergy drug-eluting stent. ASSESSMENT: Melena in an 87-year-old lady who has recently had a drug-eluting stent placement who is on aspirin and Plavix for the last 12 days. Likely upper gastrointestinal bleed related to the dual platelet therapy. Recommend urgent esophagogastroduodenoscopy for evaluation. Intravenous proton pump inhibitor is ordered by hospitalist. Pending results of esophagogastroduodenoscopy, will make recommendation for any serial hemoglobin, hematocrits, and further proton pump inhibitor use. Because of her hypertension , recent coronary artery disease with stent placed, this will be a higher risk procedure than normal. I have asked Anesthesia to be present to perform the anesthesia to make this as safe as possible for the patient. Thank you for allowing me to participate in this patient's healthcare. Do not hesitate to call me with any questions. /[id number]/MODL MTDD
[2017-07-24 05:10] LABS: PLATELET COUNT 240 10^3/uL (150-400)
[2017-07-24 05:19] LABS: INR 1.12 (0.83-1.16); PROTIME(PATIENT) 14.6 SEC (12.0-15.0)
--- NOTE | 2017-07-24 09:42 | PDMN ---
Medical Necessity Medical necessity: M180 GIB- A-2 days Melena with recent cardiac stents placed ( 1 week ago) - urinary freq., acute blood loss anemia, hyponatremia, GI consult pend- (-urgent EGD, bx) - high risk pt. H/H 9.9/28.8 9.1/26.1 , 7.5 /22.4
[2017-07-24] MEDS: EZETIMIBE 10 MG TAB PO SCH (10:11)
[2017-07-24] MEDS: ASPIRIN 81 MG CHEWABLE TAB PO SCH (10:12)
[2017-07-24] MEDS: CLOPIDOGREL BISULFATE 75 MG TAB PO SCH (10:12)
[2017-07-24] MEDS: PANTOPRAZOLE SODIUM 40 MG VIAL IVP SCH ×2 (10:12→20:01)
[2017-07-24] MEDS ORDERED: NS 1,000 ML IV SCH (12:45)
--- NOTE | 2017-07-24 12:45 | HOSPPROG ---
Hospitalist Progress Note Assessment/Plan: # UGIB d/t gastritis, gastric erosions, duodenitis; had just started DAPT - cont protonix IV today - f/u pathology # ABLA - transfuse 1U PRBC today given CAD with recent stent # AYESHA - pre-renal, also recently got contrast - optimize hemodynamics - hold nephrotoxins (janis-i) # CAD - LARRY placed 07/11/17 - cont asa, plavix, metop, zetia (intolerant of statins) # ?UTI - had dysruia last night which has resolved, UA not convincing - reassess symptoms tomorrow, follow UCx (NGTD) # htn - cont metop, hold lisino # essential tremor Subjective: dysruia last night - better today Objective: Vital Signs Temp Pulse Resp BP Pulse Ox 36.8 C 83 23 H 115/52 L 95 07/24/17 11:01 07/24/17 11:01 07/24/17 11:01 07/24/17 11:01 07/24/17 11:01 Laboratory Results 07/24/17 04:19 07/24/17 04:19 07/23/17 07/24/17 07/25/17 05:59 05:59 05:59 Intake Total 1800 Output Total 500 Balance 1300 PT 14.6 SEC (12.0-15.0) 07/24/17 04:19 INR 1.12 (0.83-1.16) 07/24/17 04:19 chart reviewed EGD note reviewed - Physical Exam Constitutional: no apparent distress, appears nourished, other (resting tremor) Cardiovascular: regular rate and rhythym, no murmur, rub, or gallop Respiratory: no respiratory distress, no rales or rhonchi Gastrointestinal: soft, non-tender abdomen, no palpable masses ICD10 Worksheet Patient Problems: Problems Problem Status Onset GIB (gastrointestinal bleeding) Acute Chest pain Acute Pyelonephritis Acute T wave inversion in EKG Acute
--- NOTE | 2017-07-24 16:34 | ASMTCMCOM ---
CM Note CM Note Notes: Spoke w/pt and daughter re; dc home w/hc. Pt lives alone in her home, has two daughers, one here in [place] and one in [place]. Pt agrees should have some homecare, CM will fax some referrals, per md, pt will dc this weekend. Pt accepted by [facility]. DC Plan: Home Care/ [facility] ( PT/OT) Date Signed: 07/24/2017 04:33 PM Electronically Signed By:Klarissa Polo RN
[2017-07-24 19:42] VITALS: RESP 16
--- NOTE | 2017-07-24 19:52 | SOAPPROG ---
SOAP Progress Note Assessment/Plan: Assessment:Plan: see full dictated consult 87 y/o with UGI bleed, melena, increased BUN/cr ratio with recent stent on aspirin and Plavix urgent EGD tonight evaluate and treat any UGI bleeding source and to stratify bleeding risk over next few days please do not stop her Plavix discussed with Dr Gilbert 07/23/17 19:59 07/24/17 19:49 EGD with erosive gastritis, low risk of rebleed, PPI daily her HB dropped c/w hydration needs PRBC as just had stent renal function should improve with more perfusion will sign off Subjective: cc- GI bleed in pt just s/p stent I feel OK, can I go home no n/v had one formed small black stool no melena Objective: Vital Signs Temp Pulse Resp BP Pulse Ox 36.7 C 90 16 136/81 H 94 07/24/17 19:40 07/24/17 19:40 07/24/17 19:40 07/24/17 19:40 07/24/17 19:40 Laboratory Results 07/24/17 04:19 07/24/17 04:19 07/23/17 07/24/17 07/25/17 05:59 05:59 05:59 Intake Total 1800 461 Output Total 500 800 Balance 1300 -339 PT 14.6 SEC (12.0-15.0) 07/24/17 04:19 INR 1.12 (0.83-1.16) 07/24/17 04:19 alert CTA S1S2 +BS, soft nt ICD10 Worksheet Patient Problems: Problems Problem Status Onset GIB (gastrointestinal bleeding) Acute Chest pain Acute Pyelonephritis Acute T wave inversion in EKG Acute
[2017-07-24] MEDS: METOPROLOL SUCCINATE XR 50 MG TAB PO SCH (20:01)
[2017-07-24] MEDS: PRIMIDONE 50 MG TAB PO SCH (20:01)
[2017-07-25 05:24] LABS: PLATELET COUNT 235 10^3/uL (150-400)
[2017-07-25 07:45] VITALS: TEMP 98.2; O2SAT 96
[2017-07-25] MEDS: PANTOPRAZOLE SODIUM 40 MG VIAL IVP SCH (08:21)
[2017-07-25] MEDS: ASPIRIN 81 MG CHEWABLE TAB PO SCH (08:23)
[2017-07-25] MEDS: CLOPIDOGREL BISULFATE 75 MG TAB PO SCH (08:23)
[2017-07-25] MEDS: EZETIMIBE 10 MG TAB PO SCH (08:23)
[2017-07-25 11:19] VITALS: BP 130/63; PULSE 76
--- NOTE | 2017-07-25 12:40 | GDS ---
[f rep st] DISCHARGE SUMMARY DIAGNOSES: 1. Gastritis with acute gastrointestinal blood loss. 2. Acute blood loss anemia. 3. Hypertension. 4. Dyslipidemia. 5. Coronary artery disease. 6. Essential tremor. CONSULTATIONS: Dr. Juan Diego Camarillo from GI. PROCEDURES DONE: EGD and biopsy showing normal esophagus, erosive gastritis, and mild duodenitis. HOSPITAL COURSE: The patient is an 87-year-old with the above past medical history, who presents wit h melena. She just had a drug-eluting stent placed to the proximal LAD about a week ago. On admissi on, she had anemia and underwent the above procedure and was found to have erosive gastritis. She wa s a low risk of rebleeding; however, plans are to continue her on Protonix 40 mg b.i.d. and close fol lowup. Her hemoglobins remain stable after her procedure. She can continue the aspirin and Plavix g iven her recent stent placement. She is slightly deconditioned from her hospital stay; however, she was evaluated by Physical and Occupational Therapy who felt she was safe to go home and will provide home care at the time of discharge. She did receive 1 unit of red blood cells during her admission. Her hemoglobin at the time of discharge is 9.5. CONDITION ON DISCHARGE: Good. Vital signs are stable. She is afebrile. Heart rate 76. Blood pres sure 130/63. She is 96% in room air. She is alert and oriented. Her abdomen is soft. DISCHARGE MEDICATIONS: Please see discharge medication form. Notable changes include addition of Pr otonix 40 mg twice daily. Her lisinopril and Adalat have been held due to her relative hypotension d uring her hospital stay, and I started her on 5 mg of lisinopril. She will continue to follow her bl ood pressures at home and increase her dose as needed. She can also see Dr. Saunders as an outpatient, w ho will recheck her blood pressure to make sure she has that increased as needed. FOLLOW UP INSTRUCTIONS: Follow up with Dr. Saunders this week for recheck blood pressure and hemoglobin. Total time spent with patient today for discharge and coordination of care is 35 minutes. /[id number]/MODL
--- NOTE | 2017-07-25 12:42 | PDIAF ---
- Diagnosis Diagnosis: Anemia, coronary artery disease and hypertension Code Status: Full Code - Medication Management Discharge Medications: Medications to Continue on Transfer Cholecalciferol Vit D3 [Vitamin D3 (*)] 2,000 - 3,000 units PO HS 07/09/17 [ Last Taken 07/08/17] Primidone [Mysoline] 50 mg PO HS 07/09/17 [Last Taken 07/22/17] Clopidogrel Bisulfate [Plavix (*)] 75 mg PO DAILY #30 tab 07/12/17 [Last Taken 07/23/17] Ezetimibe [Zetia 10 MG (*)] 10 mg PO DAILY #30 tab 07/12/17 [Last Taken 07/23/17 ] Metoprolol Succinate Xr [Toprol Xl 50 mg (*)] 50 mg PO HS #30 tab 07/12/17 [ Last Taken 07/22/17] Nitroglycerin [Nitrostat 0.4 mg (*)] 0.4 mg SL Q5M PRN 07/23/17 [Last Taken Unknown] Aspirin [Aspirin 81mg (*)] 81 mg PO DAILY tab.chew 07/25/17 [Last Taken Unknown ] Lisinopril [Prinivil] 5 mg PO DAILY #30 tablet 07/25/17 [Last Taken Unknown] Pantoprazole Sodium [Protonix 40mg (*)] 40 mg PO BID #60 tab 07/25/17 [Last Taken Unknown] Discharge Medications: Refer to the Discharge Home Medication list for PRN reason. - Orders Services needed: Home Care, Registered Nurse, Physical Therapy, Occupational Therapy Home Care Face to Face: I certify that this patient was under my care and that I had the required [id number] encounter meeting the encounter requirements on the discharge day. My findings support the fact that the patient is homebound as defined in Home Care Face to Face Continued: CMS Chapter 7 Medicare Benefits Manual 30.1.1 , The condition of the patient is such that there exists a normal inability to leave home and consequently, leaving home would require a considerable and taxing effort. Diet Recommendation: no restrictions on diet, cardiac -low fat low salt Diet Texture: Regular Texture Diet - Follow Up Care Current Providers and Referrals: Lorena Saunders MD [Primary Care Provider] - As per Instructions
--- NOTE | 2017-07-25 16:58 | ASDISCHSUM ---
Discharge Information Plan Status:Home with Home Health Medically Cleared to Leave:07/24/2017 Discharge Date:07/25/2017 02:17 PM CM D/C Disposition:Home Health Service ADT D/C Disposition:Home Health Service Projected Discharge Date:07/25/2017 11:00 AM Transportation at D/C:Family Discharge Delay Reason: Follow-Up Date:07/25/2017 11:00 AM Discharge Slot:2 - 12:01 pm - 18:00 pm Final Diagnosis:GIB, gastritis w/ acute GI blood loss, anemia Placement Information Referral Type:*Home Health Care Services Referral ID:[id number] Provider Name:[facility] ([facility]) Address 1:[address] [address] Address 2: City:[place] Selection Factors:Patient/Family Choice State:[place] Patient Contact Information Contact Name:HUMBERTO Relationship:Daughter Address: City:[place] Alternate Phone: State/Zip Code:[place] Email: Financial Information Financial Class:Medicare Advantage Plans Primary Plan Desc:KRISTI VÁSQUEZ MEDICARE Primary Plan Number:[id number] Secondary Plan Desc: Secondary Plan Number: Assessment Information [facility] Progress Note CM Note CM Note Notes: Spoke w/pt and daughter re; dc home w/hc. Pt lives alone in her home, has two daughers, one here in [place] and one in [place]. Pt agrees should have some homecare, CM will fax some referrals, per md, pt will dc this weekend. [facility] Plan: [facility] Care/ [facility] ( PT/OT) Date Signed: 07/24/2017 04:33 PM Electronically Signed By:Klarissa Polo RN Case Management Discharge Plan Note Case Management Discharge Discharge Order Complete? Answers: Yes Patient to Obtain Answers: via Family Medications Transportation Arranged Answers: Family/Friends Transport will Pick (Date 07/25/2017 12:00 AM & Time) EMTALA Complete Answers: No Notes: N/A Case Management Transport Answers: No Notes: N/A Form Complete Faxed Final Orders Answers: Yes Notes: sent via [employer] Agency/Facility Transfer Answers: Yes Notes: sent via [employer] Report Printed & Faxed to Receiving Agency Family Notified Answers: Yes Notes: dghtr April at the bedside Discharge Comments Notes: Reviewed chart regarding discharge plan, pt's progress. Per Dr. Garcia, pt to discharge home w/ home health care today. Call placed to [facility] in [place] [phone], spoke w/ Natty; left voice message for RN on-call to inquire about start of care and to confirm acceptance. Met w/ pt and pt's daughter, April to discuss home care; address and phone number verified; homebound status explained - pt and pt's dghtr verbalized understanding. No call back received from [facility]. Call placed to Hilario Moulton [phone] at [facility], left message. Call placed to [facility] in [place] [phone], spoke w/ Zully; left third message for RN on-call. Call back received from MATT Hernández on-call [phone]. Confirmed acceptance and start of care for Thursday07/26/17 for Nursing, Physical and Occuptional Therapies. Discharge orders and paperwork faxed via [employer]; confirmed receipt w/ Betty. Update provided to pt and dghtr; pt slightly confused about discharge plan and home care - dghtr April staying w/ pt for next few days. April provided cell phone number for any issues [phone]. Discharge note provided with [facility] and Case Management contact information. Meals on Wheels information provided and explained. IM signed and placed in chart. Pt to follow up as directed. CM avail for any further issues or concerns. Discharge Plan: Home w/ [facility] (RN/PT/OT) Date Signed: 07/25/2017 04:56 PM Electronically Signed By:Amelia Jones RN Intervention Information Intervention Type:*IM-Signed Date of Service:07/25/2017 01:53 PM Patient Type:Inpatient Staff Member:MATT Jones Taylor Hours: Discipline: Severity: Comment:
--- NOTE | 2017-07-25 17:51 | ASMTLACE ---
LACE Length of stay for Answers: 3 days current admission Acuity / Level of Answers: Yes Care: Did the patient have an inpatient admission? Comorbidities - select Answers: Other Notes: CAD, dyslipidemia, HTN all that apply # of Emergency department Answers: 1-2 visits in the last 6 months Score: 8 Date Signed: 07/25/2017 05:50 PM Electronically Signed By:Amelia Jones RN
== END 2017-07-25 14:17 | disposition home health service (06) | DRG 378 ==
LOC: F3E 18:41
PROVIDERS: ADMIT Internal Medicine; ATTEND Internal Medicine
PROC: 0DB68ZX Excision of Stomach, Via Natural or Artificial Opening Endoscopic, Diagnostic (ICD-10-PCS; principal; 2017-07-23 20:40)
PROC: 30233N1 Transfusion of Nonautologous Red Blood Cells into Peripheral Vein, Percutaneous Approach (ICD-10-PCS; 2017-07-24)
DX: K29.01 Acute gastritis with bleeding (principal); D62 Acute posthemorrhagic anemia; E87.1 Hypo-osmolality and hyponatremia; I10 Essential (primary) hypertension; E78.5 Hyperlipidemia, unspecified; I25.10 Atherosclerotic heart disease of native coronary artery without angina pectoris; G25.0 Essential tremor; K29.80 Duodenitis without bleeding; Z95.5 Presence of coronary angioplasty implant and graft
CPT/HCPCS: 96374; 97116-GP; 97161-GP; 97166-GO; 97535-GO; J0171; J2001; J2704; P9016

== ENCOUNTER 2017-07-26 13:36 | Emergency (ER) | payer OTHER ==
[2017-07-26 13:41] VITALS: TEMP 97.7; O2SAT 94
[2017-07-26 14:06] LABS: PLATELET COUNT 258 10^3/uL (150-400)
[2017-07-26 14:26] VITALS: RESP 18
--- NOTE | 2017-07-26 14:32 | EDPHY ---
H & P Stated Complaint: black stool, D/George yesterday for same Time Seen by Provider: 07/26/17 13:47 HPI/ROS: CHIEF COMPLAINT: Ongoing melena HISTORY OF PRESENT ILLNESS: The patient presents to the ED for evaluation of ongoing melena. The patient was hospitalized 2 days ago for evaluation of this. She underwent a endoscopy which demonstrated some erosive gastritis. She was started on Protonix. She did have some improvement in her hematocrit in the hospital. She was discharged home with a hematocrit of 27. The patient denies any significant abdominal pain, vomiting or lightheadedness. She denies additional acute complaints. REVIEW OF SYSTEMS: A comprehensive 10 point review of systems is otherwise negative aside from elements mentioned in the history of present illness. Source: Patient Exam Limitations: No limitations - Personal History Current Tetanus/Diphtheria Vaccine: Yes Current Tetanus Diphtheria and Acellular Pertussis (TDAP): Yes Tetanus Vaccine Date: 2011 - Medical/Surgical History Hx Asthma: No Hx Chronic Respiratory Disease: No Hx Diabetes: No Hx Cardiac Disease: Yes Hx Renal Disease: No Hx Cirrhosis: No Hx Alcoholism: No Hx HIV/AIDS: No Hx Splenectomy or Spleen Trauma: No Other PMH: Hyperlipidemia, HTN, tremor, thyroiditis, polio, pulmonary nodule. Heart stent Jun 2017. - Social History Smoking Status: Never smoked - Physical Exam Exam: General Appearance: Alert, no distress Eyes: Pupils equal and round no pallor or injection ENT, Mouth: Mucous membranes moist Respiratory: There are no retractions, lungs are clear to auscultation Cardiovascular: Regular rate and rhythm Gastrointestinal: Abdomen is soft and nontender, no masses, bowel sounds normal Neurological: A&O, normal motor function, normal sensory exam, normal cranial nerves Skin: Warm and dry, no rashes Musculoskeletal: Neck is supple nontender Extremities: symmetrical, full range of motion Constitutional: Initial Vital Signs Temperature (C) 36.5 C 07/26/17 13:39 Heart Rate 105 H 07/26/17 13:39 Respiratory Rate 20 07/26/17 13:39 Blood Pressure 147/71 H 07/26/17 13:39 O2 Sat (%) 94 07/26/17 13:39 O2 Delivery Mode Room Air Allergies/Adverse Reactions: No Known Allergies Allergy (Verified 07/26/17 13:38) Home Medications: Medication Instructions Recorded Cholecalciferol Vit D3 [Vitamin D3 2,000 - 3,000 units PO HS 07/09/17 (*)] Primidone [Mysoline] 50 mg PO HS 07/09/17 Clopidogrel Bisulfate [Plavix (*)] 75 mg PO DAILY #30 tab 07/12/17 Ezetimibe [Zetia 10 MG (*)] 10 mg PO DAILY #30 tab 07/12/17 Metoprolol Succinate Xr [Toprol Xl 50 mg PO HS #30 tab 07/12/17 50 mg (*)] Nitroglycerin [Nitrostat 0.4 mg 0.4 mg SL Q5M PRN 07/23/17 (*)] Aspirin [Aspirin 81mg (*)] 81 mg PO DAILY tab.chew 07/25/17 Lisinopril [Prinivil] 5 mg PO DAILY #30 tablet 07/25/17 Pantoprazole Sodium [Protonix 40mg 40 mg PO BID #60 tab 07/25/17 (*)] Medical Decision Making ED Course/Re-evaluation: The patient is nontoxic and well-appearing. I reviewed the patient's past medical records including her laboratory studies at discharge and results of her endoscopy. The patient is hemodynamically stable. The patient's hematocrit is now 31. She has been reassured that things are improving. The patient will be instructed to continue her Protonix. She has no additional acute complaints. There is no additional workup indicated at this point time. She is discharged home with customary aftercare instructions and return precautions. Differential Diagnosis: Differential diagnosis considered includes critical anemia, upper GI bleed, lower GI bleed - Data Points Laboratory Results: Laboratory Results 07/26/17 13:58 07/26/17 13:58 07/26/17 07/26/17 13:58 13:58 WBC 9.60 10^3/uL H 10^3/uL (3.80-9.50) RBC 3.34 10^6/uL L 10^6/uL (4.18-5.33) Hgb 10.2 g/dL L g/dL (12.6-16.3) Hct 30.1 % L % (38.0-47.0) MCV 90.1 fL fL (81.5-99.8) MCH 30.5 pg pg (27.9-34.1) MCHC 33.9 g/dL g/dL (32.4-36.7) RDW 14.5 % % (11.5-15.2) Plt Count 258 10^3/uL 10^3/uL (150-400) MPV 9.1 fL fL (8.7-11.7) Neut % (Auto) 77.7 % H % (39.3-74.2) Lymph % (Auto) 13.3 % L % (15.0-45.0) [place] % (Auto) 6.8 % % (4.5-13.0) Eos % (Auto) 1.3 % % (0.6-7.6) Baso % (Auto) 0.3 % % (0.3-1.7) Nucleat RBC Rel Count 0.0 % % (0.0-0.2) Absolute Neuts (auto) 7.46 10^3/uL H 10^3/uL (1.70-6.50) Absolute Lymphs (auto) 1.28 10^3/uL 10^3/uL (1.00-3.00) Absolute Monos (auto) 0.65 10^3/uL 10^3/uL (0.30-0.80) Absolute Eos (auto) 0.12 10^3/uL 10^3/uL (0.03-0.40) Absolute Basos (auto) 0.03 10^3/uL 10^3/uL (0.02-0.10) Absolute Nucleated RBC 0.00 10^3/uL 10^3/uL (0-0.01) Immature Gran % 0.6 % % (0.0-1.1) Immature Gran # 0.06 10^3/uL 10^3/uL (0.00-0.10) Sodium 139 mEq/L mEq/L (135-145) Potassium 4.4 mEq/L mEq/L (3.5-5.2) Chloride 105 mEq/L mEq/L (97-110) Carbon Dioxide 21 mEq/l L mEq/l (22-31) Anion Gap 13 mEq/L mEq/L (8-16) BUN 30 mg/dL H mg/dL (7-23) Creatinine 0.8 mg/dL mg/dL (0.6-1.0) Estimated GFR > 60 Glucose 115 mg/dL H mg/dL (70-100) Calcium 9.0 mg/dL mg/dL (8.5-10.4) Departure - Departure Disposition: Home, Routine, Self-Care Clinical Impression: Erosive gastritis Condition: Good Instructions: Gastritis (ED) Additional Instructions: 1. Your blood count continues to improve in demonstrates no evidence of a significant anemia. 2. Return to the ED for any lightheadedness, bright red blood in your stool, severe abdominal pain or other concerns. 3. Follow up as scheduled with your primary care provider. Referrals: Lorena Saunders MD [Primary Care Provider] - As per Instructions
[2017-07-26 15:22] VITALS: BP 115/58; PULSE 86
== END 2017-07-26 15:27 | disposition home or self-care (01) ==
DX: K29.00 Acute gastritis without bleeding (principal); I10 Essential (primary) hypertension; Z79.82 Long term (current) use of aspirin

== ENCOUNTER 2017-10-05 16:16 | Inpatient (IN) | payer OTHER ==
--- NOTE | 2017-10-05 16:29 | EDPHY ---
H & P Time Seen by Provider: 10/05/17 16:28 HPI/ROS: Chief complaint. Dark stool, hypertension HPI. Patient is a 87 year old female with complaint of dark tarry stool. She has had this before and has had apparent duodenal bleeding being on Plavix. Yesterday she noticed black tarry stool. Increased bowel movement frequency but not diarrhea. No bright red blood. She feels weak and tired. Her essential tremor is worse. No abdominal pain nausea vomiting. No fever. ROS Constitutional. Generalized weakness and tired Eyes. no problems with vision ENT. no sore throat, no nasal drainage Cardiovascular. no chest pain Respiratory. no shortness of breath, no cough Abdominal. Black tarry stool . no problems urinating MS. no calf pain/swelling, no neck/back pain, no joint pain Skin. no rash Lymph. no swollen glands Neuro. no headache, no dizziness, no difficulty walking or with speech Past Medical/Surgical History: Hypertension, dyslipidemia, coronary artery disease with stent, duodenal ulcer, central tremor Social History: Single, nonsmoker, no alcohol Smoking Status: Never smoked Physical Exam: General Appearance: Alert well-developed female mild distress vital signs are stable Eyes: Pupils equal and round no pallor or injection. ENT, Mouth: Mucous membranes are moist. Respiratory: There are no retractions, lungs are clear to auscultation. Cardiovascular: Regular rate and rhythm. Gastrointestinal: Abdomen is soft and nontender, no masses, bowel sounds normal. Rectal exam shows black tarry stool Neurological: Awake and alert, sensory and motor exams grossly normal. Skin: Warm and dry, no rashes. Musculoskeletal: Neck is supple nontender. Extremities symmetrical, full range of motion. Psychiatric: Patient is oriented X 3, there is no agitation. Constitutional: Initial Vital Signs Temperature (C) 36.7 C 10/05/17 16:16 Heart Rate 88 10/05/17 16:16 Respiratory Rate 14 10/05/17 16:16 Blood Pressure 177/72 H 10/05/17 16:16 O2 Sat (%) 95 10/05/17 16:16 O2 Delivery Mode Room Air Allergies/Adverse Reactions: No Known Allergies Allergy (Verified 07/26/17 13:38) Home Medications: Medication Instructions Recorded Cholecalciferol Vit D3 [Vitamin D3 2,000 - 3,000 units PO HS 07/09/17 (*)] Primidone [Mysoline] 50 mg PO HS 07/09/17 Clopidogrel Bisulfate [Plavix (*)] 75 mg PO DAILY #30 tab 07/12/17 Ezetimibe [Zetia 10 MG (*)] 10 mg PO DAILY #30 tab 07/12/17 Metoprolol Succinate Xr [Toprol Xl 50 mg PO HS #30 tab 07/12/17 50 mg (*)] Nitroglycerin [Nitrostat 0.4 mg 0.4 mg SL Q5M PRN 07/23/17 (*)] Aspirin [Aspirin 81mg (*)] 81 mg PO DAILY tab.chew 07/25/17 Lisinopril [Prinivil] 5 mg PO DAILY #30 tablet 07/25/17 Pantoprazole Sodium [Protonix 40mg 40 mg PO BID #60 tab 07/25/17 (*)] Medical Decision Making Procedures: IV normal saline ED Course/Re-evaluation: Re-evaluation 5:25 p.m.. Patient and I discussed laboratory evaluation in the fact that hematocrit has dropped. We discussed positive melena. We discussed recommendation for admission. She expresses understanding and agreed I have consulted discussed case Dr. Florence Garcia, hospitalist, who agrees to the admission Differential Diagnosis: Likely this is again duodenal ulcer bleeding. Patient has positive melena and decreased hematocrit. Increased BUN suggestive of an acute bleed. Stable vital signs. - Data Points Laboratory Results: Laboratory Results 10/05/17 16:30 10/05/17 16:30 10/05/17 10/05/17 10/05/17 16:46 16:30 16:30 WBC RBC Hgb Hct MCV MCH MCHC RDW Plt Count MPV Neut % (Auto) Lymph % (Auto) [place] % (Auto) Eos % (Auto) Baso % (Auto) Nucleat RBC Rel Count Absolute Neuts (auto) Absolute Lymphs (auto) Absolute Monos (auto) Absolute Eos (auto) Absolute Basos (auto) Absolute Nucleated RBC Immature Gran % Immature Gran # PT 13.0 SEC SEC (12.0-15.0) INR 0.96 (0.83-1.16) APTT 26.9 SEC SEC (23.0-38.0) Sodium 138 mEq/L mEq/L (135-145) Potassium 4.8 mEq/L mEq/L (3.5-5.2) Chloride 105 mEq/L mEq/L (97-110) Carbon Dioxide 20 mEq/l L mEq/l (22-31) Anion Gap 13 mEq/L mEq/L (8-16) BUN 56 mg/dL H mg/dL (7-23) Creatinine 1.1 mg/dL H mg/dL (0.6-1.0) Estimated GFR 47 Glucose 97 mg/dL mg/dL (70-100) Calcium 9.2 mg/dL mg/dL (8.5-10.4) Stool Occult Bld Scrn POSITIVE H (NEGATIVE) 10/05/17 16:30 WBC 8.34 10^3/uL 10^3/uL (3.80-9.50) RBC 3.58 10^6/uL L 10^6/uL (4.18-5.33) Hgb 10.6 g/dL L g/dL (12.6-16.3) Hct 32.3 % L % (38.0-47.0) MCV 90.2 fL fL (81.5-99.8) MCH 29.6 pg pg (27.9-34.1) MCHC 32.8 g/dL g/dL (32.4-36.7) RDW 14.9 % % (11.5-15.2) Plt Count 310 10^3/uL 10^3/uL (150-400) MPV 9.9 fL fL (8.7-11.7) Neut % (Auto) 62.4 % % (39.3-74.2) Lymph % (Auto) 22.8 % % (15.0-45.0) Blanco % (Auto) 10.7 % % (4.5-13.0) Eos % (Auto) 3.2 % % (0.6-7.6) Baso % (Auto) 0.5 % % (0.3-1.7) Nucleat RBC Rel Count 0.0 % % (0.0-0.2) Absolute Neuts (auto) 5.21 10^3/uL 10^3/uL (1.70-6.50) Absolute Lymphs (auto) 1.90 10^3/uL 10^3/uL (1.00-3.00) Absolute Monos (auto) 0.89 10^3/uL H 10^3/uL (0.30-0.80) Absolute Eos (auto) 0.27 10^3/uL 10^3/uL (0.03-0.40) Absolute Basos (auto) 0.04 10^3/uL 10^3/uL (0.02-0.10) Absolute Nucleated RBC 0.00 10^3/uL 10^3/uL (0-0.01) Immature Gran % 0.4 % % (0.0-1.1) Immature Gran # 0.03 10^3/uL 10^3/uL (0.00-0.10) PT INR APTT Sodium Potassium Chloride Carbon Dioxide Anion Gap BUN Creatinine Estimated GFR Glucose Calcium Stool Occult Bld Scrn Departure - Departure Disposition: [facility] Inpatient Acute Clinical Impression: Gastrointestinal bleeding, lower Condition: Fair Referrals: Patient,NotPresent [Unknown] - As per Instructions
[2017-10-05 16:56] LABS: PLATELET COUNT 310 10^3/uL (150-400)
[2017-10-05 17:03] LABS: INR 0.96 (0.83-1.16)
--- NOTE | 2017-10-05 18:05 | CPEKG ---
Heart Rate: 78 RR Interval: 769 P-R Interval: 200 QRSD Interval: 90 QT Interval: 396 QTC Interval: 452 P Bard: 58 QRS Bard: 71 T Wave Bard: 54 EKG Severity - OTHERWISE NORMAL ECG - EKG Impression: SINUS RHYTHM EKG Impression: VENTRICULAR PREMATURE COMPLEX Electronically Signed By: Misael Naranjo 05-Oct-2017 23:55:13
[2017-10-05] MEDS ORDERED: ACETAMINOPHEN 325 MG TAB PO PRN (18:06)
[2017-10-05] MEDS ORDERED: ONDANSETRON 4 MG/2 ML VIAL IVP PRN (18:06)
[2017-10-05] MEDS ORDERED: PANTOPRAZOLE SODIUM 40 MG VIAL IVP ONE (18:06)
[2017-10-05] MEDS ORDERED: ONDANSETRON DISINTEGRATING 4 MG TAB PO PRN (18:06)
--- NOTE | 2017-10-05 18:55 | GHP ---
[f rep st] HISTORY AND PHYSICAL DATE OF ADMISSION: 10/05/2017 CHIEF COMPLAINT: Melena. HISTORY OF PRESENT ILLNESS: The patient is an 87-year-old who was recently admitted here in July . She had acute coronary syndrome in June, had a stent placed in her LAD and was placed on Plavix and aspirin. She came back about a month later with melena and had an endoscopy performed by of the [facility] that showed erosive esophagitis and gastritis. She was placed on Protonix b.i.d. for a l ow risk bleeding, and went home. She did require a transfusion of 1 unit of packed red blood cells. Since then, she has been followed by Dr. Green for occasional iron infusions for her iron deficiency anemia. She had been doing well since that hospitalization. She said her stools normalized. She s tarted getting back to her water aerobics. However, over the last week, her stool started turning da rk brown. Thursday, she had increased BMs that were soft and black. Today they are continuing to be b lack, although her number of BMs has decreased. She has not seen any maroon stools or blood. She de nies any abdominal pain. She has no chest pain or shortness of breath. She has had some slight weak ness and decreased energy today. She has essential tremor, which is worse. No other significant sym ptoms. REVIEW OF SYSTEMS: A 10-point review of systems was done with pertinent positives present in HPI. PAST MEDICAL HISTORY: 1. Post-polio syndrome. 2. Dyslipidemia. 3. Vitamin D deficiency. 4. Essential tremor. 5. Hypertension. 6. Kidney mass. 7. Hyperparathyroidism. 8. Coronary artery disease, status post LAD stent recently. 9. Iron deficiency anemia. SOCIAL HISTORY: She lives alone. She is independent and still drives, although short distances. e denies any significant alcohol or tobacco use. FAMILY HISTORY: Parents are . MEDICATIONS: Please see med rec form. ALLERGIES: No known drug allergies. PHYSICAL EXAMINATION: VITAL SIGNS: She is afebrile. Heart rate 81, blood pressure 134/68, respirat ions 20, she is 95% on room air. GENERAL: She is a very pleasant 87-year-old. She is in no signifi cant distress. She is alert. HEENT: Pupils equal, round, and reactive. Extraocular movements inta ct. Mucous membranes slightly dry. NECK: Supple. No adenopathy. HEART: Regular. LUNGS: Clear bilaterally. ABDOMEN: Soft. No masses. Normal bowel sounds. EXTREMITIES: No clubbing, cyanosis, or edema. Pulses intact distally. MUSCULOSKELETAL: No joint deformity. SKIN: No rash. PSYCH: Normal mood. NEURO: Speech is fluent. Moving all 4 extremities. LABORATORY DATA: CBC shows a hemoglobin of 10.6. This is about 2 points lower than her previous one . Electrolytes are normal. Creatinine is slightly elevated at 1.1. BUN is also elevated at 5.6 fro m a normal of 23. ASSESSMENT AND PLAN: 1. 87-year-old presents with melena, stool positive blood, mildly elevated BUN and creatinine. Most likely etiology is an upper GI source, although slightly improved by symptoms today with decreased B Ms. I did discuss the case with Dr. Poole, and currently we are going to treat her with a proton pum p inhibitor starting with an 80 mg bolus and then a drip. Will monitor hemoglobin and hematocrit ove rnight. If she stabilizes and her melena resolves, we will likely make sure she is stable prior to d ischarge home without further intervention. However, if she has ongoing bleeding and increased drop in her hematocrit, we will call GI tomorrow morning to see her for possible upper and lower endoscopy . I will make her n.p.o. over midnight just in case she does need further procedures. Certainly in the morning if she is feeling good, she has no further bleeding, and her melena resolves and her bertin tocrits are stable, could potentially discharge home. However, would have a low threshold to scope. 2. Essential tremor, slightly worse with stress. 3. Hypertension, stable. 4. Coronary artery disease status post left anterior descending stent. We will continue her Plavix. We will hold her aspirin briefly in lieu of this bleeding and monitor her symptoms. She is current ly stable. 5. Code status: Patient wishes to be a do not resuscitate. 6. Deep venous thrombosis prophylaxis. Patient high risk for bleeding. Will hold chemical prophyla xis and place SCDs for now. /[id number]/MODL
[2017-10-05] MEDS ORDERED: NITROGLYCERIN 0.4 MG BTL SL PRN (20:26)
[2017-10-05] MEDS: PRIMIDONE 50 MG TAB PO SCH (21:26)
[2017-10-05] MEDS: METOPROLOL SUCCINATE XR 50 MG TAB PO SCH (21:26)
[2017-10-05] MEDS: PANTOPRAZOLE SODIUM 40 MG VIAL IVP SCH (23:43)
[2017-10-06] MEDS ORDERED: PANTOPRAZOLE SODIUM 40 MG VIAL IVP SCH (00:16)
[2017-10-06] MEDS ORDERED: NS 1,000 ML IV SCH (01:00)
[2017-10-06] MEDS: PANTOPRAZOLE SODIUM 40 MG VIAL IVP SCH ×4 (05:20→23:22)
[2017-10-06 05:35] LABS: PLATELET COUNT 247 10^3/uL (150-400)
--- NOTE | 2017-10-06 09:25 | ASMTCASEMG ---
Living Arrangements What is your living Answers: Alone arrangement? Who do you live with? Type Of Residence What kind of residence do Answers: House you live in? Discharge Plan Comments Coordination Status Comments Notes: Pt is a 87 y/o female admitted for melena. Therapies have been ordered and awaiting recommendations. Needs are TBD at this time. CM to follow. Plan: TBD Date Signed: 10/06/2017 09:24 AM Electronically Signed By:MILO Squires
--- NOTE | 2017-10-06 09:54 | HOSPPROG ---
Hospitalist Progress Note Assessment/Plan: Patient is an 87-year-old female who was admitted here in July. She had an acute coronary syndrome in June and at that time had a stent placed to LAD. She came back a month later with melena and had an endoscopy performed. This showed erosive esophagitis and gastritis. She return to the ER because she noted that her bowel movements were black in color. Today is my 1st encounter with the patient. Chart reviewed. Reviewed her care with Gastroenterology and Cardiology. They both will see. * most likely upper GI bleed -hemoglobin hematocrit have trended down over night -will keep her NPO for now -Dr. Poole to see * history of coronary artery disease status post stent to the LAD -help Plavix and aspirin this morning -have asked Cardiology to weigh in * essential tremor -worsens with stress * hypertension -bp stable * plan. GI to see. Appreciate cardiology's guidance of in regards to her medication Subjective: Anna is feeling fine overall, is concerned about bleeding. Objective: Vital Signs Temp Pulse Resp BP Pulse Ox 37.0 C 62 18 112/49 L 94 10/06/17 07:11 10/06/17 07:11 10/06/17 07:11 10/06/17 07:11 10/06/17 07:11 Laboratory Results 10/06/17 04:24 10/06/17 04:24 10/05/17 10/06/17 10/07/17 05:59 05:59 05:59 Intake Total 415 Balance 415 PT 13.0 SEC (12.0-15.0) 10/05/17 16:30 INR 0.96 (0.83-1.16) 10/05/17 16:30 - Physical Exam Constitutional: no apparent distress, appears nourished, not in pain Eyes: PERRL Ears, Nose, Mouth, Throat: hearing normal Cardiovascular: regular rate and rhythym Respiratory: no respiratory distress Gastrointestinal: normoactive bowel sounds Skin: warm, No normal color (pale) Musculoskeletal: full muscle strength Neurologic: AAOx3 Psychiatric: interacting appropriately ICD10 Worksheet Patient Problems: Problems Problem Status Onset Gastrointestinal bleeding, lower Acute Chest pain Acute GIB (gastrointestinal bleeding) Acute Pyelonephritis Acute T wave inversion in EKG Acute
[2017-10-06] MEDS: LISINOPRIL 5 MG TAB PO SCH (10:08)
[2017-10-06] MEDS: CLOPIDOGREL BISULFATE 75 MG TAB PO SCH (10:14)
--- NOTE | 2017-10-06 10:27 | PDANEPAE ---
ANE History of Present Illness EGD for acute upper GI bleed ANE Past Medical History - Cardiovascular History Hx Hypertension: Yes Hx Chest Pain: Yes Hx Coronary Artery / Peripheral Vascular Disease: Yes - Pulmonary History Hx Oxygen in Use at Home: No Hx Sleep Apnea: No Sleep Apnea Screening Result - Last Documented: Negative - Endocrine History Hx Diabetes: No - Renal History Hx Renal Disorders: Yes Renal History Comment: YADIRA secondar to bleed/lisinoril/UTI/etc - GI History Hx Gastrointestinal Disorders: Yes - Chronic Pain History Chronic Pain: No ANE Review of Systems Review of systems is: negative Review of Systems: - Exercise capacity METS (RN): 4 METS ANE Patient History - Allergies Allergies/Adverse Reactions: No Known Allergies Allergy (Verified 07/26/17 13:38) - Home Medications Home medications: home medication list seen and reviewed Home Medications: Cholecalciferol Vit D3 [Vitamin D3 (*)] 2,000 units PO HS 07/09/17 [Last Taken 10/04/17] Primidone [Mysoline] 50 mg PO HS 07/09/17 [Last Taken 10/04/17] Nitroglycerin [Nitrostat 0.4 mg (*)] 0.4 mg SL Q5M PRN 07/23/17 [Last Taken Unknown] Pantoprazole Sodium [Protonix 40mg (*)] 40 mg PO DAILY 10/05/17 [Last Taken ] Primidone [Mysoline 50mg (RX)] 25 mg PO DAILY 10/05/17 [Last Taken 10/05/17] - NPO status NPO Status: no food or drink >8 hours NPO Since - Liquids (Date): 10/06/17 NPO Since - Liquids (Time): 00:00 NPO Since - Solids (Date): 10/06/17 NPO Since - Solids (Time): 00:00 - Anes Hx Anes Hx: no prior problems - Smoking Hx Smoking Status: Never smoked - Family Anes Hx Family Anes Hx: none ANE Labs/Vital Signs - Labs Result Diagrams: 10/06/17 04:24 10/06/17 04:24 - Vital Signs Blood Pressure: 150/61 Heart Rate: 62 Respiratory Rate: 18 O2 Sat (%): 94 Height: 152.4 cm Weight: 54.431 kg ANE Physical Exam - Airway Neck exam: FROM Mallampati Score: Class 3 Mouth exam: dentures - Pulmonary Pulmonary: no respiratory distress - Cardiovascular Cardiovascular: regular rate and rhythym - ASA Status ASA Status: IV, E ANE Anesthesia Plan Total IV Anesthesia: Yes Urgent/Emergent Case: Evert dobson completed preop but documented later for safe timely pt care
[2017-10-06] MEDS ORDERED: PROPOFOL 200 MG/20 ML VIAL ONE (10:38)
[2017-10-06] MEDS ORDERED: LIDOCAINE 2% 100 MG/5 ML SYR ONE (10:38)
[2017-10-06] MEDS ORDERED: LR 1,000 ML IV ONE (10:42)
--- NOTE | 2017-10-06 11:03 | GCON ---
[f rep st] CONSULTATION DATE OF CONSULTATION: 10/06/2017 REFERRING PHYSICIAN: Florence Garcia MD REASON FOR CONSULTATION: Melena. Dear Dr. Garcia: Thank you very kindly for asking me to evaluate this patient in consultation for a chief complaint of melena and anemia likely due to acute blood loss. She is a pleasant 87-year-old female who recently underwent a left anterior descending artery coronar y stent placement in July for an acute coronary syndrome and was placed on Plavix and aspirin. A bout a month after this, she had the onset of melena and had an endoscopy performed which showed eros dipika esophagitis and gastritis. She has been on Protonix 40 mg twice daily and continued Plavix and a spirin. She received a unit of packed red blood cells and has been receiving iron infusions through [facility]. Everything was doing well including her labs and clinical symptoms up until late last week and then over the weekend when she started to notice again the presentation of a darker bowel movement initially describing more of a chocolate brown stool and then yesterday multip le episodes of dark black bowel movements. Interestingly, she denies any GI symptoms. She has no he artburn or dysphagia. There has been no nausea, vomiting, or hematemesis. She denies any hematochez ia, maroon, or clot within her bowel movement. There is no abdominal pain. She has been short of br eath and somewhat fatigued. On admission, she was found to have a hematocrit of 32.3, which has fall en to 26.6 today. At discharge from the hospital, her hematocrit was 27.7. Her MCV is 89.9. Platel ets and white count are normal. Her INR is 0.96. I am asked to assist with further evaluation and m anagement of her melena and acute blood loss. PAST MEDICAL HISTORY: Significant for: 1. Post-polio syndrome. 2. Essential tremor. 3. Hypertension. 4. Hyperparathyroidism. 5. Coronary artery disease with a left anterior descending coronary stent placed and needs to contin ue Plavix and aspirin at least for 6 months. 6. Iron deficiency anemia due to blood loss. 7. Esophagitis. 8. Gastritis. 9. Recent upper GI bleed attributed to acid peptic illness but it is unclear at this time the cause. 10. Dyslipidemia. PAST SURGICAL HISTORY: Percutaneous coronary angioplasty with stent placement. SOCIAL HISTORY: The patient is independent in her living. She does water aerobics and still drives. No tobacco. No alcohol. No substance abuse. She receives Meals on Wheels to help her with nutrit ion. FAMILY HISTORY: Negative for anemia, colon cancer, peptic ulcer disease, or bleeding disorders. MEDICATIONS: Include Tylenol, Plavix, Zestril, Toprol, Protonix, aspirin, primidone. ALLERGIES: None known. REVIEW OF SYSTEMS: CONSTITUTIONAL: Has felt somewhat fatigued and described a poor appetite over last few days. Denies fever, chills, weight loss. Denies nausea or emesis. HEENT: Denies sore t hroat. Denies epistaxis. No headache. No visual disturbances. PULMONARY: Reports some shortness of breath with exertion since the onset of the bleeding and has reported feeling quite fatigued. CAR DIOVASCULAR: Denies chest pain. No palpitations. No syncope. GI: Negative other than the melena. RHEUMATOLOGIC: No joint pain, swelling, or tenderness. GENITOURINARY: Denies flank pain, hematur ia, or dysuria. GYNECOLOGIC: No vaginal bleeding. HEMATOLOGIC: No bruising. Denies epistaxis. D enies clotting history. NEUROLOGIC: No paresthesias, focal motor weakness, or falls. She does repo rt a tremor that is chronic and unchanged. Cognitively, she feels well without trouble with her benny ry or thinking or any new problems with speech. DERMATOLOGIC: No rash or jaundice. PHYSICAL EXAMINATION: VITAL SIGNS: Blood pressure is 150/61, heart rate is 62, respirations are 18, oxygenation is 94% on room air, temperature is 37. GENERAL: Elderly female, alert, able to provide her own history. No acute distress. HEENT: Sclerae anicteric. Mucous membranes are moist. No bl ood in the oropharynx or nares. NECK: Supple. No JVD. No carotid bruit. No adenopathy. LUNGS: Clear to auscultation bilaterally with decreased respiratory effort. CARDIOVASCULAR: Regular rate a nd rhythm and rhythm without murmur, rub, or gallop. GI: Abdomen is nondistended, soft, nontender. No organomegaly. No abdominal bruit. No ascites. No rebound, guarding, or palpable mass. MUSCULO SKELETAL: Normal gait and station. NEUROLOGIC: There is a tremor. Nonfocal motor exam. Speech is normal. Mood and affect are normal. SKIN: Without jaundice, bruise, or rash. DATABASE: Includes white blood count 6.4, hematocrit 26.6, MCV 89.9, platelets 247. INR 0.96 with a PT of 13. Chemistry: Sodium 140, potassium 5.2, chloride 113, bicarbonate 21, BUN is 48, improved from 56 yesterday with a creatinine of 1.0, glucose 94, calcium 8.7. IMPRESSION: 1. Melena. 2. Anemia secondary to acute blood loss. 3. Coronary artery disease with recent stent on anticoagulation that cannot be interrupted. 4. Post-polio syndrome. 5. Esophagitis with gastritis on twice daily proton pump inhibitor therapy. 6. Post-polio syndrome. RECOMMENDATIONS: 1. Protonix 80 mg bolus followed by 8 mg/h. 2. N.p.o. 3. Serial hematocrit. 4. She cannot interrupt Plavix but perhaps can stop aspirin temporarily. 5. Upper GI endoscopy urgently to assess her bleeding. I discussed this with 1 of the patient's bee xin by phone. I have tried to reach her other daughter who lives in [place] but cannot reach her thi s morning, but her other daughter said that she is on board with the plan for endoscopic evaluation i n her mom. The patient is also agreeable to the procedure. 6. Anesthesia consultation for the procedure as she is at increased risk due to her recent stent constantine cement and known coronary disease, age, and anticoagulated status. 7. I have discussed the care with Roxy Garcia today, her PA, in detail. 8. If the upper endoscopy does not disclose the source of bleeding, at that point, I might initially choose more of a conservative management strategy with transfusion and observation. The next step i n the evaluation would be a colonoscopy, which we will need to consider if the upper endoscopy is neg ative. We might also pursue a tagged red blood cell scan to help with localization before deciding a bout the colonoscopy. Further recommendations to follow. 9. Please type and hold 2 units of packed cells and transfuse for hematocrit less than 25. /[id number]/MODL
[2017-10-06] MEDS ORDERED: PHENYLEPHRINE HCL 100 MCG/ML SYR ONE (11:06)
--- NOTE | 2017-10-06 11:16 | GIREPORT ---
[facility] - Endoscopy Department Patient Name: Anna Ramires Procedure Date: 10/06/2017 10:28 AM Patient Type: Inpatient Attending MD/ ER Physician: Brian Poole MD Procedure: Upper GI endoscopy Indications: Acute post hemorrhagic anemia, Melena Providers: Brian Poole MD Medicines: Propofol per Anesthesia Complications: No immediate complications. Description of Procedure: After obtaining informed consent, the endoscope was passed under direct vision. Throughout the procedure, the patient's blood pressure, pulse, and oxygen saturations were monitored continuously. The Endoscope was intro duced through the mouth, and advanced to the third part of duodenum. The uppe r GI endoscopy was accomplished without difficulty. The patient tolerated th e procedure well. Findings: The esophagus was normal. The stomach was normal. The examined duodenum was normal. Estimated Blood Loss: Estimated blood loss: none. Post Op Diagnosis: - Normal esophagus. - Normal stomach. - Normal examined duodenum. - No specimens collected. Recommendation: - Advance diet as tolerated today. - Check hematocrit q 6 hours until stable. - Continue plavix and ASA for now - If continue to drop Hct then I would recommend a colonoscopy and if negative a Tagged RBC scan. - Return to [facility] for [facility] care. - Decrease protonix to 40mg daily. - Thank you for allowing me to be involved in the care of your patient. Attending Participation: I personally performed the entire procedure without the assistance of a fellow, resident or surg ical operations manager assistant. Brian Poole MD Brian Poole MD 10/06/2017 11:16:11 AM This report has been signed electronicallyDavid MD Virgilio Number of Addenda: 0 Note Initiated On: 10/06/2017 10:28 AM [email or web address]
[2017-10-06] MEDS ORDERED: fentaNYL 100 MCG/2 ML INJ IVP PRN (11:26)
[2017-10-06] MEDS ORDERED: ONDANSETRON 4 MG/2 ML VIAL IVP PRN (11:26)
[2017-10-06] MEDS ORDERED: DEXAMETHASONE 4 MG/ML VIAL IVP PRN (11:26)
[2017-10-06] MEDS ORDERED: ACETAMINOPHEN 500 MG TAB PO PRN (11:26)
[2017-10-06] MEDS ORDERED: NALOXONE HCL 0.4 MG/ML INJ IVP PRN (11:26)
--- NOTE | 2017-10-06 11:26 | POSTANESTH ---
Post Anesthetic Evaluation Cardiovascular Status: Similar to Pre-Op Cond Respiratory Status: Normal, Stable, Similar to Pre-op Cond. Level of Consciousness/Mental Status: Can Participate in Eval, Mildly Sleepy, Arousable Pain Control: Adequate, Prn Tx Ordered Nausea/Vomiting Control: Adequate, Prn Tx Ordered Complications Possibly Related to Anesthesia: None Noted
[2017-10-06] MEDS: PRIMIDONE 50 MG TAB PO SCH ×2 (12:50→21:03)
--- NOTE | 2017-10-06 16:38 | PDMN ---
Medical Necessity Medical necessity: M180 GIB upper: Melena with H/H dropping ovn, stool occult bld +, EGD to be done today, NPO, GI consult pend., HX of CAD, HTN, erosive gastritis, erosive esophagitis, further monitoring and eval needed > 2 midnights. IV protonix, IV fluids,
[2017-10-06] MEDS: METOPROLOL SUCCINATE XR 50 MG TAB PO SCH (21:03)
[2017-10-07] MEDS: PANTOPRAZOLE SODIUM 40 MG VIAL IVP SCH ×3 (06:06→18:36)
[2017-10-07] MEDS: PRIMIDONE 50 MG TAB PO SCH ×2 (08:11→20:25)
[2017-10-07] MEDS: CLOPIDOGREL BISULFATE 75 MG TAB PO SCH (08:11)
[2017-10-07] MEDS: LISINOPRIL 5 MG TAB PO SCH (08:11)
--- NOTE | 2017-10-07 12:32 | HOSPPROG ---
Hospitalist Progress Note Assessment/Plan: Hospitalist Progress Note Assessment/Plan: Patient is an 87-year-old female who was admitted here in July. She had an acute coronary syndrome in June and at that time had a stent placed to LAD. She came back a month later with melena and had an endoscopy performed. This showed erosive esophagitis and gastritis. She return to the ER because she noted that her bowel movements were black in color. Today is my 1st encounter with the patient. Chart reviewed. * possible GI bleed -hemoglobin hematocrit are stable but lower then normal -EGD negative -Dr. Poole to see -question further workup * history of coronary artery disease status post stent to the LAD -held Plavix and aspirin -Cardiology to weigh in -will need at least asa but preferably both * essential tremor -worsens with stress * hypertension -bp stable * dysuria -UA ordered -start CTX while waiting * plan. GI to see. Appreciate cardiology's guidance of in regards to her medication Subjective: Not feeling well today. Very tired and weak. Objective: Vital Signs Temp Pulse Resp BP Pulse Ox 36.7 C 76 16 112/70 93 10/07/17 11:36 10/07/17 11:36 10/07/17 11:36 10/07/17 11:36 10/07/17 11:36 Laboratory Results 10/07/17 04:15 10/06/17 04:24 10/06/17 10/07/17 10/08/17 05:59 05:59 05:59 Intake Total 415 1400 Output Total 1150 400 Balance 415 250 -400 PT 13.0 SEC (12.0-15.0) 10/05/17 16:30 INR 0.96 (0.83-1.16) 10/05/17 16:30 - Physical Exam Constitutional: appears nourished, chronically ill appearing, uncomfortable Eyes: PERRL, anicteric sclera, EOMI Ears, Nose, Mouth, Throat: moist mucous membranes, hearing normal, ears appear normal Cardiovascular: No JVD, No tachycardia, No edema Respiratory: no respiratory distress, no rales or rhonchi, clear to auscultation Gastrointestinal: No tenderness, No ascites, No guarding Skin: warm, normal color, No mottled Musculoskeletal: normal joint ROM, no joint effusions, generalized weakness Neurologic: AAOx3 Psychiatric: not encephalopathic, thought process linear, anxious, No depressed ICD10 Worksheet Patient Problems: Problems Problem Status Onset Pyelonephritis Acute Chest pain Acute T wave inversion in EKG Acute GIB (gastrointestinal bleeding) Acute Gastrointestinal bleeding, lower Acute
--- NOTE | 2017-10-07 14:54 | ASMTCMCOM ---
CM Note CM Note Notes: CM met w/ pt for dispo planning and went over the recommendations from therapies. Pt is agreeable to going to a SNF. Pt would like a referral made to [facility]. CM sent referral to [facility]. CM spoke w/ Carmencita Contreras from Dr. Saunders' office. Dr Saunders would like pt to go to SNF. CM provided Carmencita updates. CM called pts daughter Lucille (P#: [phone]) and provided updates of the d/c plan. CM to follow. Plan: [facility] Date Signed: 10/07/2017 02:53 PM Electronically Signed By:MILO Squires
--- NOTE | 2017-10-07 15:02 | ASMTCMCOM ---
CM Note CM Note Notes: CM spoke w/ Klairssa with [facility] (P#: [phone]) and provided updates on the d/c plan. Pt is current with them for RN and SPL. CM sent updates to [facility]. Date Signed: 10/07/2017 03:01 PM Electronically Signed By:MILO Squires
[2017-10-07] MEDS ORDERED: SODIUM FERRIC GLUCONAT/SUCROSE 125 MG in NS 100 ML IV ONE (15:06)
--- NOTE | 2017-10-07 15:14 | SOAPPROG ---
SOAP Progress Note Assessment/Plan: Assessment: 1. Anemia 2. Melena 3. General malaise Plan: 1. Regular diet today 2. Clear liquid diet tomorrow after regular AM breakfast 3. Split gallon bowel cleanse on afternoon and evening after clear liquid dinner. 4. Colonoscopy is at 8:30AM on Thursday with MAC 5. Iron infusion today. 6. Check AM CBC and lytes 10/07/17 15:09 Subjective: CC: Melena. No further melena. No abdominal pain. Hct slightly down to 26 but fatigue and exhaustion seem out of proportion to this Hct from yesterday. No hematemesis or hematochezia. EGD yesterday was normal. Objective: Vital Signs Temp Pulse Resp BP Pulse Ox 36.7 C 76 16 112/70 93 10/07/17 11:36 10/07/17 11:36 10/07/17 11:36 10/07/17 11:36 10/07/17 11:36 Laboratory Results 10/07/17 04:15 10/06/17 04:24 10/06/17 10/07/17 10/08/17 05:59 05:59 05:59 Intake Total 415 1400 Output Total 1150 400 Balance 415 250 -400 PT 13.0 SEC (12.0-15.0) 10/05/17 16:30 INR 0.96 (0.83-1.16) 10/05/17 16:30 Physical Exam - Physical Exam General Appearance: no apparent distress EENT: pharynx normal Neck: supple Respiratory: lungs clear Cardiac/Chest: regular rate, rhythm Abdomen: normal bowel sounds, soft, No organomegaly, No distended, No guarding, No rebound Skin: normal color, No jaundice Lymphatic: no adenopathy Neuro/Psych: normal mood/affect, oriented x 3 ICD10 Worksheet Patient Problems: Problems Problem Status Onset Gastrointestinal bleeding, lower Acute Chest pain Acute GIB (gastrointestinal bleeding) Acute Pyelonephritis Acute T wave inversion in EKG Acute
--- NOTE | 2017-10-07 16:43 | ASMTCMCOM ---
CM Note CM Note Notes: CM spoke w/ Lucille, daughter regarding d/c POC. Lucille would like a referral made to [facility]. Lucille reports that it would be easier for her to visit. Lucille reports that she already spoke w/ pt and pt is on board w/ referral made to [facility]. CM to follow. Plan: [facility] Date Signed: 10/07/2017 04:43 PM Electronically Signed By:MILO Squires
[2017-10-07] MEDS: METOPROLOL SUCCINATE XR 50 MG TAB PO SCH (20:25)
[2017-10-08] MEDS: PANTOPRAZOLE SODIUM 40 MG VIAL IVP SCH ×4 (00:35→17:30)
[2017-10-08] MEDS: CLOPIDOGREL BISULFATE 75 MG TAB PO SCH (08:48)
[2017-10-08] MEDS: PRIMIDONE 50 MG TAB PO SCH ×2 (08:49→20:53)
[2017-10-08] MEDS: LISINOPRIL 5 MG TAB PO SCH (09:00)
--- NOTE | 2017-10-08 11:55 | SOAPPROG ---
SOAP Progress Note Assessment/Plan: Assessment: 1. Anemia 2. Melena 3. General malaise Plan: 1. Clear liquid diet today 2. Bowel cleanse split today 3. Colonoscopy with MAC tomorrow AM 4. Ok to continue plavix for procedure due to CAD and stent occlusion risk 5. Monitor daily CBC and Lytes 10/08/17 11:41 Subjective: CC: Melena Anemia secondary to blood loss Doing better today with less fatigue. Ok with proceeding with colonoscopy. Objective: Vital Signs Temp Pulse Resp BP Pulse Ox 36.9 C 79 20 113/63 93 10/08/17 11:00 10/08/17 11:00 10/08/17 11:00 10/08/17 11:00 10/08/17 11:00 Laboratory Results 10/08/17 04:19 10/06/17 04:24 10/07/17 10/08/17 10/09/17 05:59 05:59 05:59 Intake Total 1400 1310 Output Total 1150 1250 Balance 250 60 PT 13.0 SEC (12.0-15.0) 10/05/17 16:30 INR 0.96 (0.83-1.16) 10/05/17 16:30 Physical Exam - Physical Exam General Appearance: WD/WN, no apparent distress EENT: normal ENT inspection Neck: supple Respiratory: lungs clear, decreased breath sounds Cardiac/Chest: regular rate, rhythm, systolic murmur Abdomen: normal bowel sounds, non-tender, soft, No distended, No guarding, No rebound ICD10 Worksheet Patient Problems: Problems Problem Status Onset Gastrointestinal bleeding, lower Acute Chest pain Acute GIB (gastrointestinal bleeding) Acute Pyelonephritis Acute T wave inversion in EKG Acute
[2017-10-08] MEDS ORDERED: PEG 3350/NA SULF,BICARB,CL/KCL (GAVILYTE-G) 4000 ML BTL PO ONE (11:56)
--- NOTE | 2017-10-08 12:20 | HOSPPROG ---
Hospitalist Progress Note Assessment/Plan: Patient is an 87-year-old female who was admitted here in July. She had an acute coronary syndrome in June and at that time had a stent placed to LAD. She came back a month later with melena and had an endoscopy performed. This showed erosive esophagitis and gastritis. She return to the ER because she noted that her bowel movements were black in color. * possible GI bleed -hemoglobin hematocrit are stable but lower then normal -EGD negative -appreciate Dr. Poole -colonoscopy planned for tomorrow * history of coronary artery disease status post stent to the LAD -started Plavix and aspirin -will need at least asa but preferably both * essential tremor -worsens with stress * anemia -iv iron given * hypertension -bp stable * dysuria -UA clean -symptoms resolved * plan. Colon in am cont supportive care prep today Subjective: up in chair. Feels better today. Still having dark stools. Objective: Vital Signs Temp Pulse Resp BP Pulse Ox 36.9 C 79 20 113/63 93 10/08/17 11:00 10/08/17 11:00 10/08/17 11:00 10/08/17 11:00 10/08/17 11:00 Laboratory Results 10/08/17 04:19 10/06/17 04:24 10/07/17 10/08/17 10/09/17 05:59 05:59 05:59 Intake Total 1400 1310 Output Total 1150 1250 Balance 250 60 PT 13.0 SEC (12.0-15.0) 10/05/17 16:30 INR 0.96 (0.83-1.16) 10/05/17 16:30 - Physical Exam Constitutional: no apparent distress, appears nourished, not in pain Eyes: PERRL, anicteric sclera, EOMI Ears, Nose, Mouth, Throat: moist mucous membranes, hearing normal, ears appear normal Cardiovascular: No JVD, No tachycardia, No edema Respiratory: no respiratory distress, no rales or rhonchi, clear to auscultation Gastrointestinal: normoactive bowel sounds, No tenderness, No ascites Skin: warm, normal color, No mottled Musculoskeletal: normal joint ROM, no joint effusions, generalized weakness Neurologic: AAOx3 Psychiatric: interacting appropriately, not anxious, not encephalopathic, thought process linear ICD10 Worksheet Patient Problems: Problems Problem Status Onset Pyelonephritis Acute Chest pain Acute T wave inversion in EKG Acute GIB (gastrointestinal bleeding) Acute Gastrointestinal bleeding, lower Acute
[2017-10-08] MEDS: METOPROLOL SUCCINATE XR 50 MG TAB PO SCH (20:53)
[2017-10-09] MEDS: PANTOPRAZOLE SODIUM 40 MG VIAL IVP SCH ×3 (00:15→12:13)
--- NOTE | 2017-10-09 08:11 | PDANEPAE ---
ANE History of Present Illness colonoscopy ANE Past Medical History - Cardiovascular History Hx Hypertension: Yes Hx Chest Pain: Yes Hx Coronary Artery / Peripheral Vascular Disease: Yes - Pulmonary History Hx Oxygen in Use at Home: No Hx Sleep Apnea: No Sleep Apnea Screening Result - Last Documented: Negative - Endocrine History Hx Diabetes: No - Renal History Hx Renal Disorders: Yes Renal History Comment: YADIRA secondar to bleed/lisinoril/UTI/etc - GI History Hx Gastrointestinal Disorders: Yes - Chronic Pain History Chronic Pain: No ANE Review of Systems Review of systems is: negative Review of Systems: - Exercise capacity METS (RN): 4 METS ANE Patient History - Allergies Allergies/Adverse Reactions: No Known Allergies Allergy (Verified 07/26/17 13:38) - Home Medications Home medications: home medication list seen and reviewed Home Medications: Cholecalciferol Vit D3 [Vitamin D3 (*)] 2,000 units PO HS 07/09/17 [Last Taken 10/04/17] Primidone [Mysoline] 50 mg PO HS 07/09/17 [Last Taken 10/04/17] Nitroglycerin [Nitrostat 0.4 mg (*)] 0.4 mg SL Q5M PRN 07/23/17 [Last Taken Unknown] Pantoprazole Sodium [Protonix 40mg (*)] 40 mg PO DAILY 10/05/17 [Last Taken ] Primidone [Mysoline 50mg (RX)] 25 mg PO DAILY 10/05/17 [Last Taken 10/05/17] - NPO status NPO Status: no food or drink >8 hours NPO Since - Liquids (Date): 10/09/17 NPO Since - Liquids (Time): 00:00 NPO Since - Solids (Date): 10/08/17 NPO Since - Solids (Time): 12:00 - Anes Hx Anes Hx: no prior problems - Smoking Hx Smoking Status: Never smoked - Alcohol Use Alcohol Use: None ANE Labs/Vital Signs - Labs Result Diagrams: 10/09/17 07:55 10/06/17 04:24 - Vital Signs Blood Pressure: 96/42 Heart Rate: 73 Respiratory Rate: 18 O2 Sat (%): 95 Height: 152.4 cm Weight: 54.431 kg ANE Physical Exam - Airway Neck exam: FROM Mallampati Score: Class 3 Mouth exam: dentures - Pulmonary Pulmonary: no respiratory distress - Cardiovascular Cardiovascular: regular rate and rhythym - ASA Status ASA Status: IV ANE Anesthesia Plan Total IV Anesthesia: Yes
[2017-10-09] MEDS ORDERED: LR 1,000 ML IV ONE (08:15)
[2017-10-09] MEDS ORDERED: PROPOFOL 200 MG/20 ML VIAL ONE (08:21)
--- NOTE | 2017-10-09 08:38 | HOSPPROG ---
Hospitalist Progress Note Assessment/Plan: Patient is an 87-year-old female who was admitted here in July. She had an acute coronary syndrome in June and at that time had a stent placed to LAD. She came back a month later with melena and had an endoscopy performed. This showed erosive esophagitis and gastritis. She return to the ER because she noted that her bowel movements were black in color. * possible GI bleed -hemoglobin hematocrit are stable but lower then normal -EGD negative -s/p colonoscopy today, this showed nothing acute s/p polyp removal * history of coronary artery disease status post stent to the LAD -started Plavix and aspirin -will need at least asa but preferably both * essential tremor -worsens with stress * anemia -iv iron given * hypertension -bp stable * dysuria -UA clean -symptoms resolved * plan. will likely SNF on dc/ is very weak and lives alone. Subjective: Anna has no complaints. Objective: Vital Signs Temp Pulse Resp BP Pulse Ox 36.8 C 73 18 96/42 L 95 10/09/17 08:13 10/09/17 08:15 10/09/17 08:15 10/09/17 08:15 10/09/17 08:15 Laboratory Results 10/09/17 07:55 10/06/17 04:24 10/08/17 10/09/17 10/10/17 05:59 05:59 05:59 Intake Total 1310 Output Total 1250 3 Balance 60 -3 PT 13.0 SEC (12.0-15.0) 10/05/17 16:30 INR 0.96 (0.83-1.16) 10/05/17 16:30 - Physical Exam Constitutional: no apparent distress, appears nourished, not in pain Eyes: PERRL Ears, Nose, Mouth, Throat: hearing normal Respiratory: no respiratory distress Skin: warm, No normal color (pale) Musculoskeletal: generalized weakness Neurologic: AAOx3 Psychiatric: interacting appropriately ICD10 Worksheet Patient Problems: Problems Problem Status Onset Gastrointestinal bleeding, lower Acute Chest pain Acute GIB (gastrointestinal bleeding) Acute Pyelonephritis Acute T wave inversion in EKG Acute
--- NOTE | 2017-10-09 08:43 | GIREPORT ---
[facility] - Endoscopy Department Patient Name: Anna Ramires Procedure Date: 10/09/2017 8:07 AM Patient Type: Inpatient Attending MD/ ER Physician: Brian Poole MD Procedure: Colonoscopy Indications: Melena, Iron deficiency anemia Providers: Brian Poole MD Medicines: Propofol per Anesthesia Complications: No immediate complications. Description of Procedure: After obtaining informed consent, the scope was passed under direct vis ion. Throughout the procedure, the patient's blood pressure, pulse, and oxyg en saturations were monitored continuously. The Colonoscope was introduced through the anus and advanced to the cecum, identified by appendiceal orifice and ileocecal valve. The colonoscopy was performed without difficulty. The patient tolerated the procedure well. The quality of th e bowel preparation was excellent. The ileocecal valve, appendiceal orifi ce, and rectum were photographed. Findings: The digital rectal exam findings include decreased sphincter tone and non-thrombosed external hemorrhoids. Pertinent negatives include no pal pable rectal lesions. A 5 mm polyp was found in the cecum. The polyp was sessile. The polyp w as removed with a cold biopsy forceps. Resection and retrieval were comple te. Multiple small and large-mouthed diverticula were found in the sigmoid colon. Estimated Blood Loss: Estimated blood loss: none. Post Op Diagnosis: - Decreased sphincter tone and non-thrombosed external hemorrhoids foun d on digital rectal exam. - One 5 mm polyp in the cecum, removed with a cold biopsy forceps. Rese cted and retrieved. - Diverticulosis in the sigmoid colon. - No cause for melena or anemia Recommendation: - Await pathology results. - Repeat colonoscopy is not recommended for surveillance. - [facility] patient to [facility] care. - Resume regular diet today. - No further GI w/u at this time. - If she continues to have problems with melena and anemia and outpatie nt capsule endoscopy should be considered. - IV iron today - Discontinue plavix as soon as she stent has fully engrafted and then continue ASA monotherapy. Please discuss with cardiology regarding the timing and appropriateness of this recommendation, - Thank you for allowing me to be involved in the care of your patient. Attending Participation: I personally performed the entire procedure without the assistance of a fellow, resident or surg ical production assistant. Brian Poole MD Brian Poole MD 10/09/2017 8:43:11 AM This report has been signed electronicallyDavid MD Virgilio Number of Addenda: 0 Note Initiated On: 10/09/2017 8:07 AM Total Procedure Duration Time 0 hours 13 minutes 10 seconds [email or web address]
[2017-10-09] MEDS ORDERED: PHENYLEPHRINE HCL 100 MCG/ML SYR ONE (08:46)
[2017-10-09] MEDS ORDERED: oxyCODONE IR 5 MG TAB PO PRN (08:49)
[2017-10-09] MEDS ORDERED: NALOXONE HCL 0.4 MG/ML INJ IVP PRN (08:49)
[2017-10-09] MEDS ORDERED: ONDANSETRON 4 MG/2 ML VIAL IVP PRN (08:49)
[2017-10-09] MEDS ORDERED: DEXAMETHASONE 4 MG/ML VIAL IVP PRN (08:49)
[2017-10-09] MEDS ORDERED: ACETAMINOPHEN 500 MG TAB PO PRN (08:49)
[2017-10-09] MEDS ORDERED: HYDROCODONE/APAP 5/325 TAB PO PRN (08:49)
[2017-10-09] MEDS ORDERED: PHENYLEPHRINE HCL 100 MCG/ML SYR IVP PRN (08:49)
[2017-10-09] MEDS ORDERED: fentaNYL 100 MCG/2 ML INJ IVP PRN (08:49)
--- NOTE | 2017-10-09 08:49 | POSTANESTH ---
Post Anesthetic Evaluation Cardiovascular Status: Similar to Pre-Op Cond, Tx Hyper/Hypo-tension Respiratory Status: Normal, Stable, Similar to Pre-op Cond. Level of Consciousness/Mental Status: Can Participate in Eval, Moderately Sleepy Pain Control: Adequate, Prn Tx Ordered Nausea/Vomiting Control: Adequate, Prn Tx Ordered Complications Possibly Related to Anesthesia: None Noted
--- NOTE | 2017-10-09 09:54 | ASMTCMCOM ---
CM Note CM Note Notes: Spoke w/Venkatesh from [employer], they received auth from insurance. Can dc to [facility] when medically stable. DC Plan: SNF/ [facility] Date Signed: 10/09/2017 09:53 AM Electronically Signed By:Klarissa Polo RN
[2017-10-09] MEDS: LISINOPRIL 5 MG TAB PO SCH (10:00)
[2017-10-09] MEDS: CLOPIDOGREL BISULFATE 75 MG TAB PO SCH (10:44)
[2017-10-09] MEDS: PRIMIDONE 50 MG TAB PO SCH ×2 (10:44→22:02)
[2017-10-09] MEDS: PANTOPRAZOLE SODIUM 40 MG TAB PO SCH (22:00)
[2017-10-09] MEDS: METOPROLOL SUCCINATE XR 50 MG TAB PO SCH (22:01)
[2017-10-10] MEDS: PANTOPRAZOLE SODIUM 40 MG TAB PO SCH (09:14)
[2017-10-10] MEDS: PRIMIDONE 50 MG TAB PO SCH (09:15)
[2017-10-10] MEDS: LISINOPRIL 5 MG TAB PO SCH (09:16)
[2017-10-10] MEDS: CLOPIDOGREL BISULFATE 75 MG TAB PO SCH (09:16)
--- NOTE | 2017-10-10 10:16 | HOSPPROG ---
Hospitalist Progress Note Assessment/Plan: Patient is an 87-year-old female who was admitted here in July. She had an acute coronary syndrome in June and at that time had a stent placed to LAD. She came back a month later with melena and had an endoscopy performed. This showed erosive esophagitis and gastritis. She return to the ER because she noted that her bowel movements were black in color. * possible GI bleed -hemoglobin hematocrit are stable but lower then normal -EGD negative -s/p colonoscopy today, this showed nothing acute s/p polyp removal * history of coronary artery disease status post stent to the LAD -started Plavix and aspirin -will need at least asa but preferably both * essential tremor -worsens with stress * anemia -iv iron given * hypertension -bp stable * dysuria -UA clean -symptoms resolved * plan. h/h have trended down a bit, will get a repeat lab to assure stability with recent procedure; if stable, will dc to [facility] back Subjective: Anna is tired but has no complaints. Said her bowel movement is regular. Objective: Vital Signs Temp Pulse Resp BP Pulse Ox 36.8 C 65 16 120/55 L 95 10/10/17 07:40 10/10/17 07:40 10/10/17 07:40 10/10/17 07:40 10/10/17 07:40 Laboratory Results 10/10/17 04:22 10/06/17 04:24 10/09/17 10/10/17 10/11/17 05:59 05:59 05:59 Intake Total 300 Output Total 3 500 Balance -3 -200 PT 13.0 SEC (12.0-15.0) 10/05/17 16:30 INR 0.96 (0.83-1.16) 10/05/17 16:30 - Physical Exam Constitutional: no apparent distress, appears nourished, not in pain Eyes: PERRL Ears, Nose, Mouth, Throat: hearing normal Cardiovascular: regular rate and rhythym Respiratory: no respiratory distress Skin: warm, No normal color (pale) Musculoskeletal: no muscle tenderness Neurologic: AAOx3 Psychiatric: interacting appropriately ICD10 Worksheet Patient Problems: Problems Problem Status Onset Gastrointestinal bleeding, lower Acute Chest pain Acute GIB (gastrointestinal bleeding) Acute Pyelonephritis Acute T wave inversion in EKG Acute
--- NOTE | 2017-10-10 12:03 | PDIAF ---
- Diagnosis Diagnosis: gi bleed, hx of stent, anemia Code Status: Do Not Resuscitate - Medication Management Discharge Medications: Medications to Continue on Transfer Cholecalciferol Vit D3 [Vitamin D3 (*)] 2,000 units PO HS 07/09/17 [Last Taken 10/04/17] Primidone [Mysoline] 50 mg PO HS 07/09/17 [Last Taken 10/04/17] Clopidogrel Bisulfate [Plavix (*)] 75 mg PO DAILY #30 tab 07/12/17 [Last Taken 10/05/17] Ezetimibe [Zetia 10 MG (*)] 10 mg PO DAILY #30 tab 07/12/17 [Last Taken 10/05/17 ] Metoprolol Succinate Xr [Toprol Xl 50 mg (*)] 50 mg PO HS #30 tab 07/12/17 [ Last Taken 10/04/17] Nitroglycerin [Nitrostat 0.4 mg (*)] 0.4 mg SL Q5M PRN 07/23/17 [Last Taken Unknown] Lisinopril [Prinivil] 5 mg PO DAILY #30 tablet 07/25/17 [Last Taken 10/05/17] Primidone [Mysoline] 25 mg PO DAILY 10/05/17 [Last Taken 10/05/17] Pantoprazole Sodium [Protonix 40mg (*)] 40 mg PO BID tab 10/10/17 [Last Taken Unknown] Discharge Medications: Refer to the Discharge Home Medication list for PRN reason. - Orders Services needed: Physical Therapy, Occupational Therapy Diet Recommendation: no restrictions on diet Diet Texture: Regular Texture Diet Additional Instructions: monitor your stools for blood stop the aspirin - make an appointment with Dr Mukherjee as to when to resume stay on Protonix twice a day -see Dr Poole and ask how long to continue stay on the Plavix - Labs/Radiology HCT/HGB Date: 10/15/17 (weekly) - Follow Up Care Current Providers and Referrals: Patient,NotPresent [Unknown] - As per Instructions Brian Poole MD [Medical Doctor] - Ely Mukherjee MD [Medical Doctor] -
--- NOTE | 2017-10-10 12:23 | GDS ---
[f rep st] DISCHARGE SUMMARY DISCHARGE DIAGNOSES: 1. Likely a gastrointestinal bleed, status post esophagogastroduodenoscopy and colonoscopy. 2. History of coronary artery disease, status post stent to the LAD. 3. Essential tremor. 4. Anemia. 5. Hypertension. 6. Dysuria. CONSULTATION: Dr. Brian Poole. HISTORY: Briefly, the patient is an 87-year-old female who was admitted here in July. She had an acute coronary syndrome in June and at that time had a stent placed to LAD. She came back a month later and had melena and had endoscopy performed. This showed erosive esophagitis and gastritis. She returned to the ER because she was starting to have black, tarry bowel movements. She was seen and evaluated by Dr. Poole. She had an upper GI endoscopy performed that showed a normal esophagus, normal stomach. Subsequently, she had a colonoscopy performed because no source of the bleeding was noted. It showed one 5 mm polyp in the cecum and was removed with a cold biopsy and resected and retrieved. There was no etiology of her blood loss. She will be discharged to a rehab facility. I will have her hemoglobin and hematocrit monitored closely. HOSPITAL COURSE: 1. GI bleed, stable. It is a difficult situation because she has a stent placed and needs Plavix and aspirin for this. I spoke with Cardiology. For now , they are recommending to keep her on Plavix or aspirin. Will have her follow up with Dr. Mukherjee to further discuss. 2. History of coronary artery disease, status post stent to the LAD. She has continued Plavix. 3. Essential tremor. This worsens with stress. 4. Anemia. She was given IV iron. 5. Hypertension. Blood pressure is stable. 6. Dysuria, stable. DISCHARGE CONDITION: Stable. Vital signs blood pressure is 131/54. Heart rate is 75. Respiratory rate is 16. O2 sats on room air 92%. Temperature is 36.9 Celsius. DISCHARGE MEDICATIONS: Please see the EMR. PENDING LABS: Her biopsy specimens are pending from her procedures. DISCHARGE INSTRUCTIONS: 1. To follow up with Dr. Mukherjee to find out when to restart aspirin. 2. To follow up with Dr. Poole to discuss how long to stay on the Protonix b.i.d. 3. If she develops any blood in her stool, to return to the ER. Greater than 30 minutes discharging and coordinating the patient's care. /[id number]/MODL MTDD
--- NOTE | 2017-10-10 13:00 | ASMTLACE ---
LACE Length of stay for Answers: 4-6 days current admission Acuity / Level of Answers: Yes Care: Did the patient have an inpatient admission? Comorbidities - select Answers: Any tumor (including all that apply lymphoma or leukemia) Coronary Artery Disease Other Notes: HTN # of Emergency department Answers: 3-4 visits in the last 6 months Score: 15 Date Signed: 10/10/2017 01:00 PM Electronically Signed By:Klarissa Polo RN
[2017-10-10 15:41] VITALS: BP 112/71
== END 2017-10-10 15:47 | DRG 379 ==
LOC: EDUNIT# → INTOOBSV 17:29 → OBSVTOIN 17:29 → F3E 18:37
PROVIDERS: ADMIT Internal Medicine; ATTEND Internal Medicine
PROC: 0DJ08ZZ Inspection of Upper Intestinal Tract, Via Natural or Artificial Opening Endoscopic (ICD-10-PCS; 2017-10-06)
PROC: 0DBH8ZX Excision of Cecum, Via Natural or Artificial Opening Endoscopic, Diagnostic (ICD-10-PCS; principal; 2017-10-09 08:30)
DX: K92.2 Gastrointestinal hemorrhage, unspecified (principal); D12.0 Benign neoplasm of cecum; D50.0 Iron deficiency anemia secondary to blood loss (chronic); K64.4 Residual hemorrhoidal skin tags; K57.30 Diverticulosis of large intestine without perforation or abscess without bleeding; G25.0 Essential tremor; I25.10 Atherosclerotic heart disease of native coronary artery without angina pectoris; E78.5 Hyperlipidemia, unspecified; R30.0 Dysuria; E21.3 Hyperparathyroidism, unspecified; N28.89 Other specified disorders of kidney and ureter; E55.9 Vitamin D deficiency, unspecified; Z87.19 Personal history of other diseases of the digestive system; Z95.5 Presence of coronary angioplasty implant and graft
CPT/HCPCS: 97110-GP; 97116-GP; 97161-GP; 97165-GO; 97530-GP; 97535-GO; G0378; G8978-GP-CJ; G8979-GP-CI; J0171; J0696; J2001; J2370; J2704; J2916

== ENCOUNTER → 2017-11-02 | Outpatient (CLI) | payer OTHER | LOC: FIMAGING 10:34 | PROVIDERS: ATTEND Family Medicine | DX: R19.7 Diarrhea, unspecified (principal); R74.0 Nonspecific elevation of levels of transaminase and lactic acid dehydrogenase [LDH] ==

== ENCOUNTER 2018-03-04 19:48 | Inpatient (IN) | payer OTHER ==
--- NOTE | 2018-03-04 19:53 | EDPHY ---
H & P Stated Complaint: UNDER TREATMENT FOR UTI, WEAK Time Seen by Provider: 03/04/18 19:52 HPI/ROS: CHIEF COMPLAINT: Fever, shaking chills HISTORY OF PRESENT ILLNESS: The patient presents to the ED with complaints of generalized weakness, fever and shaking chills for the past 2 days. The patient was diagnosed with a possible urinary tract infection at urgent care earlier this week. She was started on Macrobid. She reports that her symptoms have worsened. She has developed fever and shaking chills this evening which prompted her visit to the emergency department. The patient denies any complaints of acute pain. She does report a dry nonproductive cough. She denies dysuria. The patient denies any significant abdominal pain, vomiting or diarrhea. She reports her symptoms are moderate to severe in nature. REVIEW OF SYSTEMS: A comprehensive 10 point review of systems is otherwise negative aside from elements mentioned in the history of present illness. Source: Patient - Personal History Current Tetanus/Diphtheria Vaccine: Yes Current Tetanus Diphtheria and Acellular Pertussis (TDAP): Yes Tetanus Vaccine Date: 2011 - Medical/Surgical History Hx Asthma: No Hx Chronic Respiratory Disease: No Hx Diabetes: No Hx Cardiac Disease: Yes Hx Renal Disease: No Hx Cirrhosis: No Hx Alcoholism: No Hx HIV/AIDS: No Hx Splenectomy or Spleen Trauma: No Other PMH: Hyperlipidemia, HTN, tremor, thyroiditis, polio, CAD with heart stent Jul 2017, duodenal ulcer - Social History Smoking Status: Never smoked - Physical Exam Exam: General Appearance: Alert, no distress Eyes: Pupils equal and round no pallor or injection ENT, Mouth: Mucous membranes moist Respiratory: There are no retractions, lungs are clear to auscultation Cardiovascular: Tachycardic Gastrointestinal: Abdomen is soft and nontender, no masses, bowel sounds normal Neurological: 5/5 strength all 4 extremities Skin: Warm and dry, no rashes Musculoskeletal: Neck is supple nontender Extremities: Cellulitic changes noted to the right lower extremity Psychiatric: Patient is oriented X 3, there is no agitation Constitutional: Initial Vital Signs Temperature (C) 37.7 C 03/04/18 19:50 Heart Rate 120 H 03/04/18 19:50 Respiratory Rate 18 03/04/18 19:50 Blood Pressure 149/81 H 03/04/18 19:50 O2 Sat (%) 91 L 03/04/18 19:50 O2 Delivery Mode Room Air Allergies/Adverse Reactions: No Known Allergies Allergy (Verified 03/04/18 21:19) Home Medications: Medication Instructions Recorded Cholecalciferol Vit D3 [Vitamin D3 2,000 units PO HS 07/09/17 (*)] Primidone [Mysoline] 50 mg PO HS 07/09/17 Clopidogrel Bisulfate [Plavix (*)] 75 mg PO DAILY #30 tab 07/12/17 Nitroglycerin [Nitrostat 0.4 mg 0.4 mg SL Q5M PRN 07/23/17 (*)] Lisinopril [Prinivil] 5 mg PO DAILY #30 tablet 07/25/17 Primidone [Mysoline] 25 mg PO DAILY 10/05/17 Herbals/Supplements -Info Only 1 ea PO DAILY 03/04/18 Metoprolol Succinate Xr [Toprol Xl 25 mg PO HS 03/04/18 25 mg (*)] Nitrofurantoin Monohyd/M-Cryst 100 mg PO BID 03/04/18 [Macrobid 100 mg Capsule] Pantoprazole Sodium [Protonix 40mg 40 mg PO Q3D 03/04/18 (*)] Medical Decision Making - Diagnostics Imaging Results: Imaging Impressions Chest X-Ray 03/04/18 20:10 Impression: Clear lungs. No pneumonia. ED Course/Re-evaluation: I reviewed the results of the patient's urine culture which demonstrated only contaminated skin pathogens. The patient was noted to be tachycardic. She does appear to have cellulitis involving her right leg. The patient had an IV established. Blood cultures x2 have been obtained. The patient's chest x-ray demonstrates no evidence of an infiltrate. The patient will be started on IV Ancef for likely cellulitis involving her right leg. I do feel she should be admitted to the hospital in a setting of her tachycardia. The patient has a normal lactic acid. She has no clinical evidence of severe sepsis or septic shock. The patient will be admitted to the hospitalist service. Consultation was made with Dr. Malka Lubin at 9:00 p.m.. Differential Diagnosis: Differential diagnosis considered includes cellulitis, pyelonephritis, pneumonia , viral syndrome, drug reaction - Data Points Laboratory Results: Laboratory Results 03/04/18 20:00 03/04/18 03/04/18 03/04/18 20:00 20:00 20:00 WBC 12.68 10^3/uL H 10^3/uL (3.80-9.50) RBC 4.61 10^6/uL 10^6/uL (4.18-5.33) Hgb 11.6 g/dL L g/dL (12.6-16.3) Hct 34.8 % L % (38.0-47.0) MCV 75.5 fL L fL (81.5-99.8) MCH 25.2 pg L pg (27.9-34.1) MCHC 33.3 g/dL g/dL (32.4-36.7) RDW 18.3 % H % (11.5-15.2) Plt Count 293 10^3/uL 10^3/uL (150-400) MPV 9.4 fL fL (8.7-11.7) Neut % (Auto) 83.8 % H % (39.3-74.2) Lymph % (Auto) 2.8 % L % (15.0-45.0) [place] % (Auto) 7.2 % % (4.5-13.0) Eos % (Auto) 5.4 % % (0.6-7.6) Baso % (Auto) 0.2 % L % (0.3-1.7) Nucleat RBC Rel Count 0.0 % % (0.0-0.2) Absolute Neuts (auto) 10.63 10^3/uL H 10^3/uL (1.70-6.50) Absolute Lymphs (auto) 0.36 10^3/uL L 10^3/uL (1.00-3.00) Absolute Monos (auto) 0.91 10^3/uL H 10^3/uL (0.30-0.80) Absolute Eos (auto) 0.68 10^3/uL H 10^3/uL (0.03-0.40) Absolute Basos (auto) 0.03 10^3/uL 10^3/uL (0.02-0.10) Absolute Nucleated RBC 0.00 10^3/uL 10^3/uL (0-0.01) Immature Gran % 0.6 % % (0.0-1.1) Immature Gran # 0.08 10^3/uL 10^3/uL (0.00-0.10) RBC/WBC/PLT Morphology TNP Platelet Estimate TNP VBG Lactic Acid 1.9 mmol/L mmol/L (0.7-2.1) Sodium Pending Potassium Pending Chloride Pending Carbon Dioxide Pending Anion Gap Pending BUN Pending Creatinine Pending Estimated GFR Pending Glucose Pending Calcium Pending Medications Given: Discontinued Medications Sodium Chloride (Ns) 1,000 mls @ 0 mls/hr IV ONCE ONE; Wide Open PRN Reason: Protocol Stop: 03/04/18 20:10 Last Admin: 03/04/18 20:28 Dose: 1,000 mls Cefazolin Sodium/Dextrose (Ancef 1 Gm (Premix)) 50 mls @ 200 mls/hr IV EDNOW ONE PRN Reason: Protocol Stop: 03/04/18 21:05 Last Admin: 03/04/18 21:06 Dose: 50 mls Departure - Departure Disposition: [facility] Inpatient Acute Clinical Impression: Cellulitis of right leg Condition: Fair
[2018-03-04] MEDS ORDERED: NS 1,000 ML IV ONE (20:09)
[2018-03-04 20:32] LABS: PLATELET COUNT 293 10^3/uL (150-400)
[2018-03-04] MEDS ORDERED: ONDANSETRON 4 MG/2 ML VIAL IVP PRN (22:01)
[2018-03-04] MEDS ORDERED: ONDANSETRON DISINTEGRATING 4 MG TAB PO PRN (22:01)
[2018-03-04] MEDS ORDERED: ACETAMINOPHEN 325 MG TAB PO PRN (22:01)
--- NOTE | 2018-03-04 22:08 | PDGENHP ---
History and Physical - Chief Complaint rigors, weakness - History of Present Illness 88 yo female with h/o hypertension, hyperlipidemia and CAD presents to ED with fevers, chills and rigors. She reports marked dysuria, frequency and urgency with onset 5 days ago. She was seen in urgent care and started on Nitrofurantoin. She reports her symptoms have not improved. Today, she developed fevers and shakes. She denies nausea or vomiting. She initially denies back pain, but her daughter states she has complained of back pain. She reports decreased oral intake. She does not report any changes in her skin or pain or swelling of her extremities. No CP, SOB or cough. In the ED, she was given IV Ancef after blood cultures were drawn for presumed LE cellulitis. She is admitted for further management. History Information - Allergies/Home Medication List Allergies/Adverse Reactions: No Known Allergies Allergy (Verified 03/04/18 21:19) Home Medications: Cholecalciferol Vit D3 [Vitamin D3 (*)] 2,000 units PO HS 07/09/17 [Last Taken 03/03/18] Primidone [Mysoline] 50 mg PO HS 07/09/17 [Last Taken 03/03/18] Nitroglycerin [Nitrostat 0.4 mg (*)] 0.4 mg SL Q5M PRN 07/23/17 [Last Taken Unknown] Primidone [Mysoline] 25 mg PO DAILY 10/05/17 [Last Taken 03/04/18] Herbals/Supplements -Info Only 1 ea PO DAILY 03/04/18 [Last Taken 03/04/18] Metoprolol Succinate Xr [Toprol Xl 25 mg (*)] 25 mg PO HS 03/04/18 [Last Taken 03/03/18] Nitrofurantoin Monohyd/M-Cryst [Macrobid 100 mg Capsule] 100 mg PO BID 03/04/18 [Last Taken 03/04/18] Pantoprazole Sodium [Protonix 40mg (*)] 40 mg PO Q3D 03/04/18 [Last Taken ] I have personally reviewed and updated: family history, medical history, social history, surgical history - Past Medical History hypertension, hyperlipidemia Additional medical history: iron deficiency anemia. CAD, stent 07/2017. h/o duodenal ulcer. 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 hyperparathyroidism - Surgical History Reports: no pertinent surgical hx - Family History Positive for: non-pertinent - Social History Smoking Status: Never smoked Alcohol Use: None Drug Use: None Additional social history: Lives alone, independently. Daughter at bedside. Review of Systems Review of Systems: ROS: 10pt was reviewed & negative except for what was stated in HPI & below Physical Exam Physical Exam: Temp Pulse Resp BP Pulse Ox 36.9 C 93 20 138/53 H 92 03/04/18 21:51 03/04/18 21:51 03/04/18 21:51 03/04/18 21:51 03/04/18 21:51 Constitutional: no apparent distress Eyes: PERRL Ears, Nose, Mouth, Throat: moist mucous membranes Cardiovascular: regular rate and rhythym Respiratory: no respiratory distress, clear to auscultation Gastrointestinal: normoactive bowel sounds, soft, non-tender abdomen Skin: warm, other (b/l LE's with petechial, non-blanchable rash R>L without warmth or associated erythema) Musculoskeletal: full muscle strength Neurologic: AAOx3 Psychiatric: interacting appropriately Lab Data & Imaging Review 03/04/18 20:00 03/04/18 20:00 WBC 12.68 10^3/uL (3.80-9.50) H 03/04/18 20:00 RBC 4.61 10^6/uL (4.18-5.33) 03/04/18 20:00 Hgb 11.6 g/dL (12.6-16.3) L 03/04/18 20:00 Hct 34.8 % (38.0-47.0) L 03/04/18 20:00 MCV 75.5 fL (81.5-99.8) L 03/04/18 20:00 MCH 25.2 pg (27.9-34.1) L 03/04/18 20:00 MCHC 33.3 g/dL (32.4-36.7) 03/04/18 20:00 RDW 18.3 % (11.5-15.2) H 03/04/18 20:00 Plt Count 293 10^3/uL (150-400) 03/04/18 20:00 MPV 9.4 fL (8.7-11.7) 03/04/18 20:00 Neut % (Auto) 83.8 % (39.3-74.2) H 03/04/18 20:00 Lymph % (Auto) 2.8 % (15.0-45.0) L 03/04/18 20:00 [place] % (Auto) 7.2 % (4.5-13.0) 03/04/18 20:00 Eos % (Auto) 5.4 % (0.6-7.6) 03/04/18 20:00 Baso % (Auto) 0.2 % (0.3-1.7) L 03/04/18 20:00 Nucleat RBC Rel Count 0.0 % (0.0-0.2) 03/04/18 20:00 Absolute Neuts (auto) 10.63 10^3/uL (1.70-6.50) H 03/04/18 20:00 Absolute Lymphs (auto) 0.36 10^3/uL (1.00-3.00) L 03/04/18 20:00 Absolute Monos (auto) 0.91 10^3/uL (0.30-0.80) H 03/04/18 20:00 Absolute Eos (auto) 0.68 10^3/uL (0.03-0.40) H 03/04/18 20:00 Absolute Basos (auto) 0.03 10^3/uL (0.02-0.10) 03/04/18 20:00 Absolute Nucleated RBC 0.00 10^3/uL (0-0.01) 03/04/18 20:00 Immature Gran % 0.6 % (0.0-1.1) 03/04/18 20:00 Immature Gran # 0.08 10^3/uL (0.00-0.10) 03/04/18 20:00 RBC/WBC/PLT Morphology TNP 03/04/18 20:00 Platelet Estimate TNP 03/04/18 20:00 VBG Lactic Acid 1.9 mmol/L (0.7-2.1) 03/04/18 20:00 Visualized and Interpreted Chest x-ray results: Yes Chest X-Ray results: no infiltrate Assessment & Plan Assessment: UTI - treated as an outpatient with nitrofurantoin, UCx ngtd. She continues to have symptoms, now with fevers and rigors, though afebrile here. Nl lactate. -send UA and UCx (already received Ancef in ED) -BCX's pending -change atbx to ceftriaxone and follow Cx data RLE rash - this is actually bilateral (though R>L) and petechial in appearance rather than erythematous. Follow. Leukocytosis - as above, suspect UTI rather than cellulitis. -atbx as above and follow Hyponatremia - suspect hypovolemic with elevated BUN -send urine osm, urine Na -NS overnight with fluid restriction, recheck in am CAD s/p stent - stable, CP free -cont home meds Hypertension - normotensive on arrival -cont home meds with hold parameters given infection Full code Dispo - admit to inpt, anticipate >48 hrs hospitalization for ongoing management of presumed UTI. PT/OT evals requested.
[2018-03-04] MEDS ORDERED: NS 1,000 ML IV SCH (22:15)
[2018-03-04] MEDS ORDERED: PRIMIDONE 50 MG TAB PO SCH (22:30)
[2018-03-05] MEDS ORDERED: MELATONIN 3 MG TAB PO PRN (02:58)
[2018-03-05 05:25] LABS: PLATELET COUNT 233 10^3/uL (150-400)
--- NOTE | 2018-03-05 06:46 | PDMN ---
Medical Necessity Medical necessity: Pt meets inpt criteria per MD order and MCG M-300, Urinary Tract Infection, A-2 days. 88 y/o presents w/fever, chills, rigors, recently seen in urgent care for UTI and despite outpt treatment UTI symptoms (dysuria, frequency, and urgency) persist. Pt admitted w/ presumed UTI, bilat LE rash, leukocytosis, and hyponatremia. IVF, IV ABX's, urine and blood cultures pending , PT/OT evals pending, anticipate>2MN for ongoing management of above conditions.
[2018-03-05] MEDS ORDERED: LISINOPRIL 5 MG TAB PO SCH (09:00)
[2018-03-05] MEDS ORDERED: PRIMIDONE 50 MG TAB PO SCH (09:00)
[2018-03-05] MEDS ORDERED: CLOPIDOGREL BISULFATE 75 MG TAB PO SCH (09:00)
[2018-03-05] MEDS ORDERED: ENOXAPARIN 40 MG/0.4 ML SYR SC SCH (09:00)
[2018-03-05 11:25] VITALS: BP 111/64
--- NOTE | 2018-03-05 17:30 | PDDCSUM ---
Discharge Summary Discharge Summary: Date of Admission: 03/04/2018 Date of Discharge: 03/05/2018 Consultants: none Procedures/Studies: none Discharge Diagnoses: 1. UTI 2. Lower extremity petechial rash 3. Leukocytosis 4. Hyponatremia 5. CAD 6. HTN 7. Essential tremor Brief Hospital Course: 88yo F with CAD, HTN presented with subjective fever and chills. Had recently been diagnosed with UTI and started on nitrofurantoin but urinary symptoms did not caio and she developed chills so came to ED. Not septic or febrile while hospitalized. Urine culture without growth but had been on antibiotics. Was discharged to complete 7 day course of cephalexin. Blood cultures negative. She was slightly hyponatremic which improved with IVF. She had a new petechial rash on lower extremities, R>L around ankle area. I suspect this is a medication side effect. She did not have any arthralgias. UA was negative for protein and blood, thus, vasculitis unlikely. Medications: Please refer to EMR for complete list. Changes this admission include discontinuing nitrofurantoin and adding cephalexin. Follow Up Plan: 1. PCP clinic visit next week to monitor urinary symptoms and rash 2. Follow up finalized blood cultures 3. Repeat BMP in 1-2 weeks to monitor Na Physical Exam: Vitals reviewed, afebrile and normotensive. Alert and oriented. RRR without m/r/g on cardiac exam. Lungs clear. Abdomen soft and nontender. No frey. Petechial rash over R>L lower legs. No focal neuro deficits.
[2018-03-05] MEDS ORDERED: METOPROLOL SUCCINATE XR 25 MG TAB PO SCH (21:00)
[2018-03-07] MEDS ORDERED: PANTOPRAZOLE SODIUM 40 MG TAB PO SCH (08:00)
== END 2018-03-05 13:55 | disposition home or self-care (01) | DRG 690 ==
LOC: F3E 21:32
PROVIDERS: ADMIT Hospitalist; ATTEND Hospitalist
DX: N39.0 Urinary tract infection, site not specified (principal); E87.1 Hypo-osmolality and hyponatremia; L27.0 Generalized skin eruption due to drugs and medicaments taken internally; G25.0 Essential tremor; E86.9 Volume depletion, unspecified; I10 Essential (primary) hypertension; E78.5 Hyperlipidemia, unspecified; I25.10 Atherosclerotic heart disease of native coronary artery without angina pectoris; Z95.5 Presence of coronary angioplasty implant and graft
CPT/HCPCS: 96365; 97116-GP; 97161-GP; 97166-GO; G8978-GP-CJ; G8979-GP-CI; J0690; J0696; J1650